=== PATIENT | female | born 1950 | race Caucasian/White ===

== ENCOUNTER 2017-03-04 05:47 | Emergency (ER) | payer OTHER ==
[~2017-03-04] VITALS: Ht 165.1 cm; Wt 108.9 kg
[~2017-03-04 05:47] MED LIST: ACET325UDC PO; ALPR.5 PO; AMLO5 PO; ASPI325 PO; ATOR40TA PO; CETI5 PO; CITA20 PO; CLOP75 PO; DOC250 PO; GABA100 PO; HYDR1TAB94 PO; LEVSOD100 PO; LISI20 PO; METO25 PO; OXYB5 PO; Omeprazole20 M1 PO; PANT40 PO; PROBIOTIC1 EAC1 PO; TRIM100 PO; ZOLP10 PO
[2017-03-04 06:11] LABS: BASOPHILS ABSOLUTE AUTO 0.02 K/mm3 (0.00-0.23); BASOPHILS PERCENT AUTO 0 % (0-2); EOSINOPHILS ABSOLUTE AUTO 0.25 K/mm3 (0.00-0.68); EOSINOPHILS PERCENT AUTO 4 % (0-6); Hemoglobin 14.8 g/dL (11.5-16.0); IMMATURE GRAN ABSOLUTE AUTO 0.01 K/mm3 (0.00-0.10); IMMATURE GRAN PERCENT AUTO 0 % (0-1); LYMPHOCYTES PERCENT AUTO 35 % (21-46); MONOCYTES ABSOLUTE AUTO 0.35 K/mm3 (0.16-1.47); MONOCYTES PERCENT AUTO 5 % (4-13); Mean Corpuscular HGB 30.6 pg (26.0-34.0); Mean Corpuscular HGB Conc 33.6 g/dL (31.5-36.5); Mean Corpuscular Volume 91 fL (80-100); Mean Platelet Volume 11.6 fL (9.1-12.4); NEUTROPHILS ABSOLUTE AUTO 3.63 K/mm3 (1.96-9.15); NEUTROPHILS PERCENT AUTO 55 % (41-73); Platelet Count 215 K/mm3 (150-400); RDW Coefficient Variation 12.5 % (11.7-14.2); RDW Standard Deviation 41.6 fL (35.1-46.3); Red Blood Cell Count 4.84 M/mm3 (3.80-5.20); White Blood Cell Count 6.56 K/mm3 (4.00-11.30)
[2017-03-04] MEDS ORDERED: HYDR1TAB94 PO (06:16)
[2017-03-04] MEDS ORDERED: TRAM50 PO (06:16)
[2017-03-04] MEDS ORDERED: NITR100 PO (06:17)
[2017-03-04] MEDS ORDERED: OLAN2.5 PO (06:17)
[2017-03-04 06:30] LABS: Alanine Aminotransfer (ALT/SGP 30 U/L (12-78); Albumin, Blood 3.3 g/dL (3.4-5.0); Albumin/Globulin Ratio 0.9 (0.8-1.8); Alk Phos 141 U/L (50-136); Anion Gap 9 mmol/L (6-16); Aspartate Aminotrans (AST/SGOT 18 U/L (12-37); Bilirubin, Total 0.8 mg/dL (0.1-1.0); Blood Urea Nitrogen 18 mg/dL (8-24); Bun/Creatinine Ratio 31.4 (12.0-20.0); CO2, Blood 24 mmol/L (21-32); Calcium, Blood 8.5 mg/dL (8.5-10.1); Chloride, Blood 109 mmol/L (98-108); Creatinine, Blood 0.57 mg/dL (0.40-1.00); Globulin, Blood 3.7 g/dL (2.2-4.0); Glomerular Filtration Rate >60 (60-); Glucose, Blood 116 mg/dL (70-99); Potassium, Blood 3.7 mmol/L (3.5-5.5); Sodium, Blood 142 mmol/L (136-145); Troponin I <0.015 ng/mL (0.000-0.040)
== END 2017-03-04 07:50 | disposition home or self-care (01) ==
LOC: ER 05:47
PROVIDERS: Emergency Medicine
DX: R41.82 Altered mental status, unspecified (principal); T43.595A Adverse effect of other antipsychotics and neuroleptics, initial encounter; I10 Essential (primary) hypertension; E78.00 Pure hypercholesterolemia, unspecified; Z88.1 Allergy status to other antibiotic agents; Z88.5 Allergy status to narcotic agent; Z88.2 Allergy status to sulfonamides; Z88.8 Allergy status to other drugs, medicaments and biological substances; Z79.899 Other long term (current) drug therapy; Z79.82 Long term (current) use of aspirin; Z86.73 Personal history of transient ischemic attack (TIA), and cerebral infarction without residual deficits
CPT/HCPCS: 70450; 80053; 82947; 84484; 85025; 93005; 93010; 96360; 99284; J7030; P9612

== ENCOUNTER 2017-05-18 00:28 | Emergency (ER) | payer OTHER ==
[~2017-05-18] VITALS: Ht 165.1 cm; Wt 104.3 kg
[~2017-05-18 00:28] MED LIST changes: +NITR100 PO; +OLAN2.5 PO; +TRAM50 PO
[2017-05-18 01:25] LABS: BASOPHILS ABSOLUTE AUTO 0.03 K/mm3 (0.00-0.23); BASOPHILS PERCENT AUTO 0 % (0-2); EOSINOPHILS ABSOLUTE AUTO 0.11 K/mm3 (0.00-0.68); EOSINOPHILS PERCENT AUTO 1 % (0-6); Hematocrit 44.3 % (33.0-51.0); Hemoglobin 15.2 g/dL (11.5-16.0); IMMATURE GRAN ABSOLUTE AUTO 0.06 K/mm3 (0.00-0.10); IMMATURE GRAN PERCENT AUTO 0 % (0-1); LYMPHOCYTES ABSOLUTE AUTO 0.83 K/mm3 (0.84-5.20); LYMPHOCYTES PERCENT AUTO 5 % (21-46); MONOCYTES ABSOLUTE AUTO 0.54 K/mm3 (0.16-1.47); MONOCYTES PERCENT AUTO 3 % (4-13); Mean Corpuscular HGB 30.8 pg (26.0-34.0); Mean Corpuscular HGB Conc 34.3 g/dL (31.5-36.5); Mean Corpuscular Volume 90 fL (80-100); Mean Platelet Volume 12.5 fL (9.1-12.4); NEUTROPHILS ABSOLUTE AUTO 15.75 K/mm3 (1.96-9.15); NEUTROPHILS PERCENT AUTO 91 % (41-73); Platelet Count 220 K/mm3 (150-400); RDW Coefficient Variation 12.1 % (11.7-14.2); RDW Standard Deviation 39.8 fL (35.1-46.3); Red Blood Cell Count 4.93 M/mm3 (3.80-5.20); White Blood Cell Count 17.32 K/mm3 (4.00-11.30)
[2017-05-18 01:38] LABS: Alanine Aminotransfer (ALT/SGP 99 U/L (12-78); Albumin, Blood 3.4 g/dL (3.4-5.0); Albumin/Globulin Ratio 0.8 (0.8-1.8); Alk Phos 205 U/L (50-136); Anion Gap 12 mmol/L (6-16); Aspartate Aminotrans (AST/SGOT 32 U/L (12-37); Bilirubin, Total 0.7 mg/dL (0.1-1.0); Blood Urea Nitrogen 19 mg/dL (8-24); CO2, Blood 23 mmol/L (21-32); Calcium, Blood 8.4 mg/dL (8.5-10.1); Chloride, Blood 105 mmol/L (98-108); Creatinine, Blood 0.68 mg/dL (0.40-1.00); Globulin, Blood 4.3 g/dL (2.2-4.0); Glomerular Filtration Rate >60 (60-); Glucose, Blood 225 mg/dL (70-99); Potassium, Blood 4.2 mmol/L (3.5-5.5); Sodium, Blood 140 mmol/L (136-145); Total Protein, Blood 7.7 g/dL (6.4-8.2)
== END 2017-05-18 02:56 | disposition home or self-care (01) ==
LOC: ER 00:28
PROVIDERS: Emergency Medicine
DX: R11.2 Nausea with vomiting, unspecified (principal); I10 Essential (primary) hypertension; E78.00 Pure hypercholesterolemia, unspecified; Z88.1 Allergy status to other antibiotic agents; Z88.5 Allergy status to narcotic agent; Z88.2 Allergy status to sulfonamides; Z79.899 Other long term (current) drug therapy; Z79.82 Long term (current) use of aspirin; Z86.73 Personal history of transient ischemic attack (TIA), and cerebral infarction without residual deficits
CPT/HCPCS: 36415; 80053; 83690; 85025; 96361; 96374; 99283; J2405; J7030

== ENCOUNTER 2017-08-24 20:00 | Inpatient (IN) | payer OTHER ==
[~2017-08-24] VITALS: Ht 167.6 cm; Wt 96.0 kg
[2017-08-24 20:32] LABS: BASOPHILS ABSOLUTE AUTO 0.02 K/mm3 (0.00-0.23); BASOPHILS PERCENT AUTO 0 % (0-2); EOSINOPHILS ABSOLUTE AUTO 0.22 K/mm3 (0.00-0.68); EOSINOPHILS PERCENT AUTO 3 % (0-6); Hematocrit 40.8 % (33.0-51.0); Hemoglobin 13.8 g/dL (11.5-16.0); IMMATURE GRAN ABSOLUTE AUTO 0.02 K/mm3 (0.00-0.10); IMMATURE GRAN PERCENT AUTO 0 % (0-1); LYMPHOCYTES ABSOLUTE AUTO 1.19 K/mm3 (0.84-5.20); LYMPHOCYTES PERCENT AUTO 17 % (21-46); MONOCYTES ABSOLUTE AUTO 0.48 K/mm3 (0.16-1.47); MONOCYTES PERCENT AUTO 7 % (4-13); Mean Corpuscular HGB 31.2 pg (26.0-34.0); Mean Corpuscular HGB Conc 33.8 g/dL (31.5-36.5); Mean Corpuscular Volume 92 fL (80-100); Mean Platelet Volume 12.1 fL (9.1-12.4); NEUTROPHILS ABSOLUTE AUTO 5.28 K/mm3 (1.96-9.15); NEUTROPHILS PERCENT AUTO 73 % (41-73); Platelet Count 262 K/mm3 (150-400); RDW Coefficient Variation 12.3 % (11.7-14.2); RDW Standard Deviation 41.5 fL (35.1-46.3); Red Blood Cell Count 4.43 M/mm3 (3.80-5.20); White Blood Cell Count 7.21 K/mm3 (4.00-11.30)
[2017-08-24 20:50] LABS: Alanine Aminotransfer (ALT/SGP 406 U/L (12-78); Albumin, Blood 3.2 g/dL (3.4-5.0); Albumin/Globulin Ratio 0.7 (0.8-1.8); Alk Phos 426 U/L (50-136); Anion Gap 10 mmol/L (6-16); Aspartate Aminotrans (AST/SGOT 394 U/L (12-37); Bilirubin, Total 2.9 mg/dL (0.1-1.0); Blood Urea Nitrogen 22 mg/dL (8-24); CO2, Blood 23 mmol/L (21-32); Chloride, Blood 104 mmol/L (98-108); Creatinine, Blood 0.71 mg/dL (0.40-1.00); Globulin, Blood 4.6 g/dL (2.2-4.0); Glomerular Filtration Rate >60 (60-); Glucose, Blood 167 mg/dL (70-99); Potassium, Blood 3.9 mmol/L (3.5-5.5); Sodium, Blood 137 mmol/L (136-145); Total Protein, Blood 7.8 g/dL (6.4-8.2)
[2017-08-24 22:23] LABS: Source, Urine Clean Catch
[2017-08-24 22:28] LABS: Blood, Urine 1+ (Neg); Glucose Qualitative, Urine Neg (Neg); Ketones, Urine 1+ (Neg); Leukocyte Esterase, Urine 2+ (Neg); Nitrite, Urine Pos (Neg); Protein, Urine 2+ (Neg); Urobilinogen, Urine 4+ (Normal)
[2017-08-24 22:29] LABS: Appearance, Urine Hazy (Clear); Bilirubin, Urine 3+ (Neg); Color, Urine Amber (P-Yellow)
[2017-08-24 22:33] LABS: Red Blood Cells, Urine Rare /hpf (0-2)
[2017-08-24 22:34] LABS: Bacteria Many /hpf; Squamous Epithelial Cells Not Seen /hpf (Few)
[2017-08-25] MEDS ORDERED: AMLO5 PO (02:01)
[2017-08-25 03:57] LABS: Thyroid Stimulating Hormone 0.705 uIU/mL (0.360-4.800)
[2017-08-25] MEDS ORDERED: PREMARIN VAG CREAM (05:23)
[2017-08-25] MEDS ORDERED: FLONASE SENSIM5.9 ML ×2 (05:23→10:52)
[2017-08-25] MEDS ORDERED: ALLERGY EYE DRO10 ML BOTHEYES (10:52)
[2017-08-26 04:42] LABS: Hematocrit 32.8 % (33.0-51.0); Hemoglobin 10.9 g/dL (11.5-16.0); Mean Corpuscular HGB 31.2 pg (26.0-34.0); Mean Corpuscular HGB Conc 33.2 g/dL (31.5-36.5); Mean Corpuscular Volume 94 fL (80-100); Mean Platelet Volume 11.8 fL (9.1-12.4); Platelet Count 188 K/mm3 (150-400); RDW Coefficient Variation 12.3 % (11.7-14.2); RDW Standard Deviation 42.9 fL (35.1-46.3); Red Blood Cell Count 3.49 M/mm3 (3.80-5.20); White Blood Cell Count 8.32 K/mm3 (4.00-11.30)
[2017-08-26 05:02] LABS: Alanine Aminotransfer (ALT/SGP 229 U/L (12-78); Albumin, Blood 2.4 g/dL (3.4-5.0); Albumin/Globulin Ratio 0.6 (0.8-1.8); Alk Phos 316 U/L (50-136); Anion Gap 10 mmol/L (6-16); Aspartate Aminotrans (AST/SGOT 150 U/L (12-37); BAND PERCENT MAN 9 % (0-8); BASOPHILS PERCENT MAN 0 % (0-2); Bilirubin, Total 1.7 mg/dL (0.1-1.0); Blood Urea Nitrogen 9 mg/dL (8-24); Bun/Creatinine Ratio 16.2 (12.0-20.0); CO2, Blood 21 mmol/L (21-32); Calcium, Blood 7.9 mg/dL (8.5-10.1); Chloride, Blood 108 mmol/L (98-108); Creatinine, Blood 0.55 mg/dL (0.40-1.00); EOSINOPHILS PERCENT MAN 0 % (0-6); Globulin, Blood 3.7 g/dL (2.2-4.0); Glomerular Filtration Rate >60 (60-); Glucose, Blood 280 mg/dL (70-99); LYMPHOCYTES ABSOLUTE MAN 0.41 K/mm3 (0.84-5.20); LYMPHOCYTES PERCENT MAN 5 % (21-46); MONOCYTES ABSOLUTE MAN 0.49 K/mm3 (0.16-1.47); MONOCYTES PERCENT MAN 6 % (4-13); Potassium, Blood 4.4 mmol/L (3.5-5.5); SEG NEUTROPHILS PERCENT MAN 80 % (41-73); Sodium, Blood 139 mmol/L (136-145); TOTAL CELLS COUNTED 100; Total Protein, Blood 6.1 g/dL (6.4-8.2)
[2017-08-27 04:28] LABS: BASOPHILS ABSOLUTE AUTO 0.02 K/mm3 (0.00-0.23); BASOPHILS PERCENT AUTO 0 % (0-2); EOSINOPHILS ABSOLUTE AUTO 0.43 K/mm3 (0.00-0.68); EOSINOPHILS PERCENT AUTO 7 % (0-6); Hemoglobin 10.8 g/dL (11.5-16.0); IMMATURE GRAN ABSOLUTE AUTO 0.03 K/mm3 (0.00-0.10); IMMATURE GRAN PERCENT AUTO 1 % (0-1); LYMPHOCYTES ABSOLUTE AUTO 1.11 K/mm3 (0.84-5.20); LYMPHOCYTES PERCENT AUTO 18 % (21-46); MONOCYTES ABSOLUTE AUTO 0.42 K/mm3 (0.16-1.47); MONOCYTES PERCENT AUTO 7 % (4-13); Mean Corpuscular HGB 30.9 pg (26.0-34.0); Mean Corpuscular HGB Conc 32.7 g/dL (31.5-36.5); Mean Corpuscular Volume 94 fL (80-100); Mean Platelet Volume 12.2 fL (9.1-12.4); NEUTROPHILS ABSOLUTE AUTO 4.13 K/mm3 (1.96-9.15); NEUTROPHILS PERCENT AUTO 67 % (41-73); Platelet Count 176 K/mm3 (150-400); RDW Coefficient Variation 12.7 % (11.7-14.2); RDW Standard Deviation 43.7 fL (35.1-46.3); White Blood Cell Count 6.14 K/mm3 (4.00-11.30)
[2017-08-27 04:52] LABS: Alanine Aminotransfer (ALT/SGP 176 U/L (12-78); Albumin, Blood 2.4 g/dL (3.4-5.0); Albumin/Globulin Ratio 0.7 (0.8-1.8); Alk Phos 292 U/L (50-136); Anion Gap 7 mmol/L (6-16); Aspartate Aminotrans (AST/SGOT 94 U/L (12-37); Blood Urea Nitrogen 6 mg/dL (8-24); CO2, Blood 26 mmol/L (21-32); Calcium, Blood 7.8 mg/dL (8.5-10.1); Chloride, Blood 111 mmol/L (98-108); Globulin, Blood 3.4 g/dL (2.2-4.0); Glomerular Filtration Rate >60 (60-); Glucose, Blood 166 mg/dL (70-99); Magnesium, Blood 1.9 mg/dL (1.6-2.4); Phosphorus, Blood 2.1 mg/dL (2.5-4.9); Potassium, Blood 4.1 mmol/L (3.5-5.5); Sodium, Blood 144 mmol/L (136-145); Total Protein, Blood 5.8 g/dL (6.4-8.2)
[2017-08-28 04:15] LABS: Albumin, Blood 2.8 g/dL (3.4-5.0); Albumin/Globulin Ratio 0.7 (0.8-1.8); Bilirubin, Direct 0.4 mg/dL (0.0-0.3); Bilirubin, Indirect 0.8 mg/dL (0.1-0.7); Bilirubin, Total 1.2 mg/dL (0.1-1.0); Globulin, Blood 4.2 g/dL (2.2-4.0)
[2017-08-29] MEDS ORDERED: CIPR500 PO (10:01)
[2017-08-29] MEDS ORDERED: METR500 PO (10:02)
[2017-08-29] MEDS ORDERED: ONDA4ODT MM (10:04)
== END 2017-08-29 13:40 | disposition home health service (06) | DRG 418 ==
LOC: ER 20:00 → PCU 08-25 02:59
PROVIDERS: Emergency Medicine; Hospitalist; Surgery
PROC: BF13YZZ Fluoroscopy of Gallbladder and Bile Ducts using Other Contrast (ICD-10-PCS; 2017-08-25)
PROC: 0FT44ZZ Resection of Gallbladder, Percutaneous Endoscopic Approach (ICD-10-PCS; principal; 2017-08-25 11:30)
DX: K80.00 Calculus of gallbladder with acute cholecystitis without obstruction (principal); I69.951 Hemiplegia and hemiparesis following unspecified cerebrovascular disease affecting right dominant side; N39.0 Urinary tract infection, site not specified; E03.9 Hypothyroidism, unspecified; E78.5 Hyperlipidemia, unspecified; K21.9 Gastro-esophageal reflux disease without esophagitis
CPT/HCPCS: 36415; 51702; 70450; 71046; 74181; 74300; 76705; 80053; 80076; 81001; 83605; 83690; 83735; 84100; 84443; 85025; 87086; 88304; 96365; 97110; 97161; 97166; 97530; 99285; C1729; C9113; G8978; G8979; G8980; G8987; G8988; G8989; J0696; J0744; J1100; J2001; J2060; J2250; J2370; J2405; J2710; J3010; J7030; P9612

== ENCOUNTER → 2017-09-17 | Outpatient (CLI) | payer OTHER ==
[~2017-09-17] MED LIST changes: +ALLERGY EYE DRO10 ML BOTHEYES; +CIPR500 PO; +FLONASE SENSIM5.9 ML; +METR500 PO; +ONDA4ODT MM; +PREMARIN VAG CREAM
[2017-09-17 15:03] LABS: Bilirubin, Urine Neg (Neg); Blood, Urine Neg (Neg); Glucose Qualitative, Urine Neg (Neg); Ketones, Urine Neg (Neg); Leukocyte Esterase, Urine 2+ (Neg); Nitrite, Urine Neg (Neg); Protein, Urine 1+ (Neg); Urobilinogen, Urine NORM (Normal)
[2017-09-17 15:18] LABS: Appearance, Urine Clear (Clear); Color, Urine Yellow (P-Yellow)
[2017-09-17 15:19] LABS: Bacteria Few /hpf; Red Blood Cells, Urine 0-2 /hpf (0-2); Squamous Epithelial Cells Few /hpf (Few); White Blood Cells, Urine 25-50 /hpf (0-5); Yeast/Fungi Urine Few /hpf
== END | disposition home or self-care (01) ==
LOC: LAB EV 12:05
PROVIDERS: Nurse Practitioner
DX: R35.0 Frequency of micturition (principal)
CPT/HCPCS: 81001

== ENCOUNTER 2017-11-25 19:21 | Inpatient (IN) | payer OTHER ==
[~2017-11-25] VITALS: Ht 165.1 cm; Wt 94.2 kg
[2017-11-25 19:57] LABS: BASOPHILS ABSOLUTE AUTO 0.03 K/mm3 (0.00-0.23); BASOPHILS PERCENT AUTO 0 % (0-2); EOSINOPHILS ABSOLUTE AUTO 0.13 K/mm3 (0.00-0.68); EOSINOPHILS PERCENT AUTO 1 % (0-6); Hematocrit 44.8 % (33.0-51.0); Hemoglobin 15.1 g/dL (11.5-16.0); IMMATURE GRAN ABSOLUTE AUTO 0.04 K/mm3 (0.00-0.10); IMMATURE GRAN PERCENT AUTO 0 % (0-1); LYMPHOCYTES PERCENT AUTO 12 % (21-46); MONOCYTES ABSOLUTE AUTO 0.54 K/mm3 (0.16-1.47); MONOCYTES PERCENT AUTO 4 % (4-13); Mean Corpuscular HGB 30.8 pg (26.0-34.0); Mean Corpuscular HGB Conc 33.7 g/dL (31.5-36.5); Mean Corpuscular Volume 91 fL (80-100); Mean Platelet Volume 12.3 fL (9.1-12.4); NEUTROPHILS ABSOLUTE AUTO 10.77 K/mm3 (1.96-9.15); NEUTROPHILS PERCENT AUTO 83 % (41-73); Platelet Count 213 K/mm3 (150-400); RDW Coefficient Variation 12.4 % (11.7-14.2); RDW Standard Deviation 41.7 fL (35.1-46.3); White Blood Cell Count 13.01 K/mm3 (4.00-11.30)
[2017-11-25 20:06] LABS: Alanine Aminotransfer (ALT/SGP 37 U/L (12-78); Albumin, Blood 3.5 g/dL (3.4-5.0); Albumin/Globulin Ratio 0.8 (0.8-1.8); Alk Phos 165 U/L (50-136); Anion Gap 11 mmol/L (6-16); Aspartate Aminotrans (AST/SGOT 27 U/L (12-37); Bilirubin, Total 0.7 mg/dL (0.1-1.0); Blood Urea Nitrogen 15 mg/dL (8-24); Bun/Creatinine Ratio 24.8 (12.0-20.0); CO2, Blood 22 mmol/L (21-32); Calcium, Blood 9.1 mg/dL (8.5-10.1); Chloride, Blood 105 mmol/L (98-108); Creatinine, Blood 0.61 mg/dL (0.40-1.00); Globulin, Blood 4.4 g/dL (2.2-4.0); Glomerular Filtration Rate >60 (60-); Glucose, Blood 162 mg/dL (70-99); Potassium, Blood 3.9 mmol/L (3.5-5.5); Sodium, Blood 138 mmol/L (136-145); Total Protein, Blood 7.9 g/dL (6.4-8.2)
[2017-11-25] MEDS ORDERED: Nitrofurantoin50 MG PO (20:11)
[2017-11-25 22:43] LABS: Source, Urine Clean Catch
[2017-11-25 22:46] LABS: Bilirubin, Urine Neg (Neg); Blood, Urine Neg (Neg); Glucose Qualitative, Urine Neg (Neg); Ketones, Urine 1+ (Neg); Leukocyte Esterase, Urine 1+ (Neg); Nitrite, Urine Neg (Neg); Protein, Urine 1+ (Neg); Specific Gravity, Urine 1.015 (1.003-1.022); Urobilinogen, Urine NORM (Normal)
[2017-11-25 22:53] LABS: Appearance, Urine Clear (Clear); Color, Urine Yellow (P-Yellow); Red Blood Cells, Urine 0-2 /hpf (0-2); Squamous Epithelial Cells Mod /hpf (Few)
[2017-11-25 22:54] LABS: Bacteria Mod /hpf; Mucus Mod (0-Heavy)
[2017-11-26 00:34] LABS: Adenovirus Not Detected (NOT DETECT); Coronavirus 229E Not Detected (NOT DETECT); Coronavirus HKU1 Not Detected (NOT DETECT); Coronavirus NL63 Not Detected (NOT DETECT); Coronavirus OC43 Not Detected (NOT DETECT); Human Metapneumovirus Not Detected (NOT DETECT); Human Rhinovirus/Enterovirus Not Detected (NOT DETECT); Influenza A/H1 Not Detected (NOT DETECT); Influenza A/H3 Not Detected (NOT DETECT)
[2017-11-26 00:35] LABS: Bordetella pertussis Not Detected (NOT DETECT); Chlamydophila pneumoniae Not Detected (NOT DETECT); Influenza A/2009-H1 Not Detected (NOT DETECT); Influenza B Not Detected (NOT DETECT); Mycoplasma pneumoniae Not Detected (NOT DETECT); Parainfluenza Virus 1 Not Detected (NOT DETECT); Parainfluenza Virus 2 Not Detected (NOT DETECT); Parainfluenza Virus 3 Not Detected (NOT DETECT); Parainfluenza Virus 4 Not Detected (NOT DETECT); Respiratory Syncytial Virus Not Detected (NOT DETECT)
[2017-11-26 02:50] LABS: Influenza A Not Detected (NOT DETECT)
[2017-11-26 04:11] LABS: BASOPHILS ABSOLUTE AUTO 0.02 K/mm3 (0.00-0.23); BASOPHILS PERCENT AUTO 0 % (0-2); EOSINOPHILS ABSOLUTE AUTO 0.17 K/mm3 (0.00-0.68); EOSINOPHILS PERCENT AUTO 2 % (0-6); Hematocrit 39.3 % (33.0-51.0); Hemoglobin 12.7 g/dL (11.5-16.0); IMMATURE GRAN ABSOLUTE AUTO 0.03 K/mm3 (0.00-0.10); IMMATURE GRAN PERCENT AUTO 0 % (0-1); LYMPHOCYTES ABSOLUTE AUTO 2.34 K/mm3 (0.84-5.20); LYMPHOCYTES PERCENT AUTO 25 % (21-46); MONOCYTES ABSOLUTE AUTO 0.68 K/mm3 (0.16-1.47); MONOCYTES PERCENT AUTO 7 % (4-13); Mean Corpuscular HGB 30.6 pg (26.0-34.0); Mean Corpuscular HGB Conc 32.3 g/dL (31.5-36.5); Mean Platelet Volume 12.1 fL (9.1-12.4); NEUTROPHILS ABSOLUTE AUTO 6.16 K/mm3 (1.96-9.15); NEUTROPHILS PERCENT AUTO 66 % (41-73); Platelet Count 176 K/mm3 (150-400); RDW Coefficient Variation 12.6 % (11.7-14.2); RDW Standard Deviation 43.5 fL (35.1-46.3); Red Blood Cell Count 4.15 M/mm3 (3.80-5.20)
[2017-11-26 04:12] LABS: Mean Corpuscular Volume 95 fL (80-100)
[2017-11-26 04:31] LABS: Anion Gap 7 mmol/L (6-16); Blood Urea Nitrogen 12 mg/dL (8-24); Bun/Creatinine Ratio 20.2 (12.0-20.0); CO2, Blood 23 mmol/L (21-32); Calcium, Blood 7.6 mg/dL (8.5-10.1); Chloride, Blood 111 mmol/L (98-108); Creatinine, Blood 0.59 mg/dL (0.40-1.00); Glomerular Filtration Rate >60 (60-); Glucose, Blood 128 mg/dL (70-99); Potassium, Blood 3.7 mmol/L (3.5-5.5); Sodium, Blood 141 mmol/L (136-145)
[2017-11-27 04:39] LABS: BASOPHILS ABSOLUTE AUTO 0.02 K/mm3 (0.00-0.23); BASOPHILS PERCENT AUTO 0 % (0-2); EOSINOPHILS ABSOLUTE AUTO 0.22 K/mm3 (0.00-0.68); EOSINOPHILS PERCENT AUTO 4 % (0-6); Hematocrit 37.2 % (33.0-51.0); Hemoglobin 12.3 g/dL (11.5-16.0); IMMATURE GRAN ABSOLUTE AUTO 0.01 K/mm3 (0.00-0.10); IMMATURE GRAN PERCENT AUTO 0 % (0-1); LYMPHOCYTES ABSOLUTE AUTO 1.96 K/mm3 (0.84-5.20); LYMPHOCYTES PERCENT AUTO 35 % (21-46); MONOCYTES PERCENT AUTO 5 % (4-13); Mean Corpuscular HGB 30.8 pg (26.0-34.0); Mean Corpuscular HGB Conc 33.1 g/dL (31.5-36.5); Mean Corpuscular Volume 93 fL (80-100); Mean Platelet Volume 12.5 fL (9.1-12.4); NEUTROPHILS ABSOLUTE AUTO 3.07 K/mm3 (1.96-9.15); NEUTROPHILS PERCENT AUTO 55 % (41-73); Platelet Count 163 K/mm3 (150-400); RDW Coefficient Variation 12.6 % (11.7-14.2); RDW Standard Deviation 43.3 fL (35.1-46.3); Red Blood Cell Count 3.99 M/mm3 (3.80-5.20); White Blood Cell Count 5.58 K/mm3 (4.00-11.30)
[2017-11-27 04:53] LABS: Anion Gap 6 mmol/L (6-16); Blood Urea Nitrogen 10 mg/dL (8-24); Bun/Creatinine Ratio 15.7 (12.0-20.0); CO2, Blood 25 mmol/L (21-32); Calcium, Blood 8.2 mg/dL (8.5-10.1); Chloride, Blood 111 mmol/L (98-108); Creatinine, Blood 0.64 mg/dL (0.40-1.00); Glomerular Filtration Rate >60 (60-); Glucose, Blood 112 mg/dL (70-99); Potassium, Blood 3.6 mmol/L (3.5-5.5); Sodium, Blood 142 mmol/L (136-145)
[2017-11-27] MEDS ORDERED: Artificial Tear15 M4 BOTHEYES (14:36)
[2017-11-27] MEDS ORDERED: ALBU2.5V5 NEB (14:50)
[2017-11-27] MEDS ORDERED: LEVO750 PO (14:51)
[2017-11-27] MEDS ORDERED: MUCINEX D ER 61 EACH PO (14:51)
[2017-11-27] MEDS ORDERED: ABAT250V (14:59)
[2017-11-27] MEDS ORDERED: MUCUS ER600 MG PO (14:59)
== END 2017-11-27 15:28 | disposition home health service (06) | DRG 871 ==
LOC: ER 19:21 → MEDS 22:28 → PCU 22:28
PROVIDERS: Emergency Medicine; Nurse Practitioner Acute Care; Student in an Organized Health Care Education/Training Program
DX: A41.9 Sepsis, unspecified organism (principal); J96.01 Acute respiratory failure with hypoxia; J69.0 Pneumonitis due to inhalation of food and vomit; I69.351 Hemiplegia and hemiparesis following cerebral infarction affecting right dominant side; E87.2 Acidosis; I69.391 Dysphagia following cerebral infarction; I69.320 Aphasia following cerebral infarction; I10 Essential (primary) hypertension; E78.00 Pure hypercholesterolemia, unspecified; E03.9 Hypothyroidism, unspecified; N95.1 Menopausal and female climacteric states; K21.9 Gastro-esophageal reflux disease without esophagitis; R21 Rash and other nonspecific skin eruption; F32.9 Major depressive disorder, single episode, unspecified; Z98.1 Arthrodesis status; Z90.710 Acquired absence of both cervix and uterus; Z87.440 Personal history of urinary (tract) infections; Z79.890 Hormone replacement therapy; Z79.01 Long term (current) use of anticoagulants; Z79.82 Long term (current) use of aspirin; Z79.899 Other long term (current) drug therapy; Z88.1 Allergy status to other antibiotic agents; Z88.2 Allergy status to sulfonamides
CPT/HCPCS: 36415; 51701; 71046; 80048; 80053; 81001; 83605; 85025; 87086; 87449; 87486; 87581; 87633; 87798; 90686; 92610; 93005; 93010; 94640; 94760; 96365; 97165; 97535; 99285-25; G8987; G8988; G8989; G8996; G8997; G8998; J1650; J1956; J7030

== ENCOUNTER → 2018-04-09 | Outpatient (CLI) | payer OTHER ==
[~2018-04-09] MED LIST changes: +ABAT250V; +ALBU2.5V5 NEB; +Artificial Tear15 M4 BOTHEYES; +LEVO750 PO; +MUCINEX D ER 61 EACH PO; +MUCUS ER600 MG PO; +Nitrofurantoin50 MG PO
[2018-04-09 09:52] LABS: Source, Urine Clean Catch
[2018-04-09 10:26] LABS: Appearance, Urine Hazy (Clear); Bilirubin, Urine Neg (Neg); Blood, Urine Neg (Neg); Color, Urine Yellow (P-Yellow); Glucose Qualitative, Urine Neg (Normal); Ketones, Urine Neg (Neg); Leukocyte Esterase, Urine 1+ (Neg); Nitrite, Urine Neg (Neg); Protein, Urine Neg (Neg); Specific Gravity, Urine 1.005 (1.003-1.022); Urobilinogen, Urine NORM (Normal)
[2018-04-09 10:33] LABS: Bacteria Rare /hpf; Red Blood Cells, Urine Not Seen /hpf (0-2); Squamous Epithelial Cells Few /hpf (Few)
== END | disposition home or self-care (01) ==
LOC: LAB EV 08:00
PROVIDERS: Nurse Practitioner
DX: R35.0 Frequency of micturition (principal)
CPT/HCPCS: 81001; 87086

== ENCOUNTER → 2018-10-02 | Outpatient (CLI) | payer OTHER | END | disposition home or self-care (01) | LOC: LAB EV 10:36 → LAB SHORT 10:36 | DX: R39.9 Unspecified symptoms and signs involving the genitourinary system (principal) | CPT/HCPCS: 87077; 87086; 87186 ==

== ENCOUNTER → 2019-05-29 | Outpatient (CLI) | payer OTHER | END | disposition home or self-care (01) | LOC: LAB EV 18:19 → LAB SHORT 18:19 | DX: R35.0 Frequency of micturition (principal) | CPT/HCPCS: 87086 ==

== ENCOUNTER → 2019-12-01 | Outpatient (CLI) | payer OTHER ==
[2019-12-01 11:39] LABS: Appearance, Urine Hazy (Clear); Bilirubin, Urine Neg (Neg); Blood, Urine 1+ (Neg); Color, Urine Yellow (P-Yellow); Glucose Qualitative, Urine Neg (Normal); Ketones, Urine Neg (Neg); Leukocyte Esterase, Urine 2+ (Neg); Nitrite, Urine Neg (Neg); Protein, Urine Neg (Neg); Source, Urine Catheter; Urobilinogen, Urine NORM (Normal); White Blood Cells, Urine 50-100 /hpf (0-5)
[2019-12-01 11:40] LABS: Bacteria Mod /hpf; Squamous Epithelial Cells Few /hpf (Few); Transitional Epithelial Cells Rare /hpf (0-Rare)
== END | disposition home or self-care (01) ==
LOC: LAB EV 09:59 → LAB SHORT 09:59
PROVIDERS: Nurse Practitioner
DX: N39.0 Urinary tract infection, site not specified (principal)
CPT/HCPCS: 81001; 87077; 87086; 87186

== ENCOUNTER → 2020-01-14 | Outpatient (CLI) | payer OTHER ==
[2020-01-14 09:35] LABS: Source, Urine Catheter
[2020-01-14 09:39] LABS: Appearance, Urine Hazy (Clear); Bilirubin, Urine Neg (Neg); Blood, Urine Neg (Neg); Color, Urine Yellow (P-Yellow); Glucose Qualitative, Urine Neg (Normal); Ketones, Urine Neg (Neg); Leukocyte Esterase, Urine 2+ (Neg); Nitrite, Urine Neg (Neg); Protein, Urine Neg (Neg); Urobilinogen, Urine NORM (Normal)
[2020-01-14 09:55] LABS: Bacteria Not Seen /hpf; Red Blood Cells, Urine Not Seen /hpf (0-2); Squamous Epithelial Cells Mod /hpf (Few)
== END ==
LOC: LAB SHORT 09:21 → LAB EV 09:21
PROVIDERS: Nurse Practitioner
DX: N39.0 Urinary tract infection, site not specified (principal)
CPT/HCPCS: 81001; 87077; 87086; 87186

== ENCOUNTER 2021-01-23 15:01 | Emergency (ER) | payer OTHER ==
[~2021-01-23] VITALS: Ht 165.1 cm; Wt 95.2 kg
[2021-01-23] MEDS ORDERED: CYMBALTA30 M2 PO (15:15)
[2021-01-23] MEDS ORDERED: NEURONTIN300 MG PO (15:16)
[2021-01-23 15:54] LABS: BASOPHILS ABSOLUTE AUTO 0.01 K/mm3 (0.00-0.23); BASOPHILS PERCENT AUTO 0 % (0-2); EOSINOPHILS PERCENT AUTO 0 % (0-6); Hematocrit 41.1 % (33.0-51.0); Hemoglobin 13.7 g/dL (11.5-16.0); IMMATURE GRAN ABSOLUTE AUTO 0.03 K/mm3 (0.00-0.10); IMMATURE GRAN PERCENT AUTO 0 % (0-1); LYMPHOCYTES ABSOLUTE AUTO 0.77 K/mm3 (0.84-5.20); LYMPHOCYTES PERCENT AUTO 11 % (21-46); MONOCYTES ABSOLUTE AUTO 0.25 K/mm3 (0.16-1.47); MONOCYTES PERCENT AUTO 4 % (4-13); Mean Corpuscular HGB 30.4 pg (26.0-34.0); Mean Corpuscular HGB Conc 33.3 g/dL (31.5-36.5); Mean Corpuscular Volume 91 fL (80-100); Mean Platelet Volume 12.5 fL (9.1-12.4); NEUTROPHILS ABSOLUTE AUTO 6.16 K/mm3 (1.96-9.15); NEUTROPHILS PERCENT AUTO 85 % (41-73); Platelet Count 202 K/mm3 (150-400); RDW Coefficient Variation 12.3 % (11.7-14.2); RDW Standard Deviation 40.8 fL (35.1-46.3); Red Blood Cell Count 4.51 M/mm3 (3.80-5.20); White Blood Cell Count 7.22 K/mm3 (4.00-11.30)
[2021-01-23 16:23] LABS: Alanine Aminotransfer (ALT/SGP 25 U/L (12-78); Albumin, Blood 3.2 g/dL (3.4-5.0); Albumin/Globulin Ratio 0.7 (0.8-1.8); Alk Phos 146 U/L (50-136); Anion Gap 4 mmol/L (6-16); Aspartate Aminotrans (AST/SGOT 18 U/L (12-37); Blood Urea Nitrogen 8 mg/dL (8-24); Bun/Creatinine Ratio 11.4 (12.0-20.0); CO2, Blood 28 mmol/L (21-32); Calcium, Blood 8.8 mg/dL (8.5-10.1); Chloride, Blood 106 mmol/L (98-108); Globulin, Blood 4.4 g/dL (2.2-4.0); Glomerular Filtration Rate >60 (60-); Glucose, Blood 175 mg/dL (70-99); Sodium, Blood 138 mmol/L (136-145); Total Protein, Blood 7.6 g/dL (6.4-8.2)
[2021-01-23 16:44] LABS: Source, Urine Clean Catch
[2021-01-23 16:59] LABS: Appearance, Urine Clear (Clear); Bilirubin, Urine Neg (Neg); Blood, Urine Neg (Neg); Color, Urine Yellow (P-Yellow); Glucose Qualitative, Urine Neg (Neg); Ketones, Urine 3+ (Neg); Leukocyte Esterase, Urine Neg (Neg); Nitrite, Urine Neg (Neg); Protein, Urine Neg (Neg); Specific Gravity, Urine 1.015 (1.003-1.022); Urobilinogen, Urine NORM (Normal)
[2021-01-23] MEDS ORDERED: ONDA4ODT MM (17:56)
[2021-01-23] MEDS ORDERED: MAGCIT300 PO (17:56)
== END 2021-01-23 18:30 | disposition home or self-care (01) ==
LOC: ER 15:01
PROVIDERS: Physician Assistant
DX: R11.2 Nausea with vomiting, unspecified (principal); I10 Essential (primary) hypertension; Z86.73 Personal history of transient ischemic attack (TIA), and cerebral infarction without residual deficits
CPT/HCPCS: 36415; 71045; 74177; 80053; 81003; 83690; 85025; 99284-25; J7030; P9612; Q9967

== ENCOUNTER → 2021-06-16 | Outpatient (CLI) | payer OTHER ==
[~2021-06-16] MED LIST changes: +CYMBALTA30 M2 PO; +MAGCIT300 PO; +NEURONTIN300 MG PO
== END ==
LOC: LAB SHORT 09:18
DX: N39.0 Urinary tract infection, site not specified (principal)
CPT/HCPCS: 87077; 87086; 87186

== ENCOUNTER → 2021-10-12 | Outpatient (CLI) | payer OTHER ==
[2021-10-12 12:32] LABS: Microalb/Creat Ratio UR, Rand 8.079 mg/g (0.000-30.000); Microalbumin, Random Urine 12.2 mg/L (0.000-20.000)
== END | disposition home or self-care (01) ==
LOC: LAB SHORT 08:15 → EDSTATUS 10:13
PROVIDERS: Family Medicine
DX: R73.03 Prediabetes (principal)
CPT/HCPCS: 82043; 82570

== ENCOUNTER → 2022-01-04 | Outpatient (CLI) | payer OTHER | END | disposition home or self-care (01) | LOC: LAB 11:57 → LAB SHORT 11:57 | DX: N39.0 Urinary tract infection, site not specified (principal) | CPT/HCPCS: 87077; 87086; 87186 ==

== ENCOUNTER 2022-02-01 19:12 | Inpatient (IN) | payer OTHER ==
[~2022-02-01] VITALS: Ht 165.1 cm; Wt 97.5 kg
[~2022-02-01 19:12] MED LIST changes: -ALLERGY EYE DRO10 ML BOTHEYES; +ARTIFICIAL TEAR15 M2 BOTHEYES; -Artificial Tear15 M4 BOTHEYES; -CYMBALTA30 M2 PO; +DULO60 PO; +FLONASE SENSIM5.9 M1; -LEVSOD100 PO; +LEVSOD112 PO; +OMEP20ER PO; -Omeprazole20 M1 PO; +ZADITOR5 M1 BOTHEYES
[2022-02-01 20:11] LABS: BASOPHILS ABSOLUTE AUTO 0.04 K/mm3 (0.00-0.23); BASOPHILS PERCENT AUTO 0 % (0-2); EOSINOPHILS PERCENT AUTO 0 % (0-6); Hematocrit 46.2 % (33.0-51.0); Hemoglobin 15.2 g/dL (11.5-16.0); IMMATURE GRAN ABSOLUTE AUTO 0.13 K/mm3 (0.00-0.10); IMMATURE GRAN PERCENT AUTO 1 % (0-1); LYMPHOCYTES ABSOLUTE AUTO 0.95 K/mm3 (0.84-5.20); LYMPHOCYTES PERCENT AUTO 5 % (21-46); MONOCYTES ABSOLUTE AUTO 0.61 K/mm3 (0.16-1.47); MONOCYTES PERCENT AUTO 3 % (4-13); Mean Corpuscular HGB 30.3 pg (26.0-34.0); Mean Corpuscular HGB Conc 32.9 g/dL (31.5-36.5); Mean Corpuscular Volume 92 fL (80-100); Mean Platelet Volume 12.5 fL (9.1-12.4); NEUTROPHILS ABSOLUTE AUTO 17.15 K/mm3 (1.96-9.15); NEUTROPHILS PERCENT AUTO 91 % (41-73); Platelet Count 231 K/mm3 (150-400); RDW Coefficient Variation 12.8 % (11.7-14.2); RDW Standard Deviation 43.4 fL (35.1-46.3); Red Blood Cell Count 5.02 M/mm3 (3.80-5.20); White Blood Cell Count 18.88 K/mm3 (4.00-11.30)
[2022-02-01 20:41] LABS: Albumin, Blood 3.1 g/dL (3.4-5.0); Albumin/Globulin Ratio 0.7 (0.8-1.8); Bilirubin, Total 1.7 mg/dL (0.1-1.0); Bun/Creatinine Ratio 22.1 (12.0-20.0); Calcium, Blood 9.1 mg/dL (8.5-10.1); Creatinine, Blood 0.81 mg/dL (0.40-1.00); Globulin, Blood 4.7 g/dL (2.2-4.0); Potassium, Blood 3.9 mmol/L (3.5-5.5); Total Protein, Blood 7.8 g/dL (6.4-8.2)
[2022-02-01 21:10] LABS: Influenza A, PCR NEGATIVE (NEGATIVE); Influenza B, PCR NEGATIVE (NEGATIVE); Resp Syncytial Virus, PCR NEGATIVE (NEGATIVE); SARS-Cov-2 (COVID-19) PCR, MMC NEGATIVE (NEGATIVE)
[2022-02-01] MEDS ORDERED: IPRAT-ALBUT 0.5-3 ML INH (23:42)
[2022-02-01] MEDS ORDERED: Ventolin/Prove6.7 GM INH (23:43)
[2022-02-01] MEDS ORDERED: ESTRADIOL42.5 GM VAG (23:44)
[2022-02-01] MEDS ORDERED: FLUTICASONE-SA1 EAC9 INH (23:46)
[2022-02-01] MEDS ORDERED: ARIPIPRAZOLE2 M1 PO (23:46)
[2022-02-02 01:25] LABS: BASOPHILS ABSOLUTE AUTO 0.04 K/mm3 (0.00-0.23); BASOPHILS PERCENT AUTO 0 % (0-2); EOSINOPHILS PERCENT AUTO 0 % (0-6); Hematocrit 46.7 % (33.0-51.0); Hemoglobin 15.5 g/dL (11.5-16.0); IMMATURE GRAN PERCENT AUTO 1 % (0-1); LYMPHOCYTES ABSOLUTE AUTO 1.41 K/mm3 (0.84-5.20); LYMPHOCYTES PERCENT AUTO 8 % (21-46); MONOCYTES ABSOLUTE AUTO 0.55 K/mm3 (0.16-1.47); MONOCYTES PERCENT AUTO 3 % (4-13); Mean Corpuscular HGB 30.5 pg (26.0-34.0); Mean Corpuscular HGB Conc 33.2 g/dL (31.5-36.5); Mean Corpuscular Volume 92 fL (80-100); NEUTROPHILS ABSOLUTE AUTO 15.91 K/mm3 (1.96-9.15); NEUTROPHILS PERCENT AUTO 88 % (41-73); RDW Coefficient Variation 12.8 % (11.7-14.2); RDW Standard Deviation 43.1 fL (35.1-46.3); Red Blood Cell Count 5.09 M/mm3 (3.80-5.20); White Blood Cell Count 18.01 K/mm3 (4.00-11.30)
[2022-02-02 01:30] LABS: Albumin, Blood 2.9 g/dL (3.4-5.0); Albumin/Globulin Ratio 0.7 (0.8-1.8); Bilirubin, Total 1.6 mg/dL (0.1-1.0); Bun/Creatinine Ratio 29.7 (12.0-20.0); Calcium, Blood 8.3 mg/dL (8.5-10.1); Creatinine, Blood 0.64 mg/dL (0.40-1.00); Globulin, Blood 4.3 g/dL (2.2-4.0); Potassium, Blood 3.8 mmol/L (3.5-5.5); Total Protein, Blood 7.2 g/dL (6.4-8.2)
--- NOTE | 2022-02-02 01:57 | NUR ---
PT LACTIC ACID CAME IN AT CRITICAL VALUE OF 2.6 UP FROM 2.4. HOSPITALIST NOTIFIEND INSTRUCTED TO CONTINUE TO MONITOR.
[2022-02-02 02:11] LABS: Mean Platelet Volume 11.9 fL (9.1-12.4); Platelet Count 159 K/mm3 (150-400)
--- NOTE | 2022-02-02 03:36 | NUR ---
SHIFT SUMMARY NOC ADMIT FROM ED. PT ADMITTED FOR SEVERE SEPSIS SECONDARY TO LLL PNA. PT HAS NS IV FLUIDS RUNNING AT 100mls/hr per SEPSIS PROTOCOL. 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 PT IS ON 02 2L/NC WITH SPO2 OF 100%. BEDSIDE SWALLOW EVALUATION COMPLETED WITH PT PASSING EVAL. PT PREFERS RX WHOLE IN APPLESAUCE. PT HAS A CRITICAL LACTIC ACID VALUE OF 2.6 AND HOSPITALIST WAS NOTIFIED AND INSTRUCTIONS WERE TO CONTINUE MONITORING PT FOR S/SX AND LABS. PT WBC WAS ALSO ELEVATED AT 18.01. PT HAS PUREWICK IN PLACE WITH ATTENDS ON. PT IS CURRENTLY RESTING WITH BED RAILS UP, BED IN LOWEST POSITION, AND CALL LIGHT WITHIN REACH.
--- NOTE | 2022-02-02 03:43 | NUR ---
PT HAD BEDSIDE SWALLOW EVALUATION DONE AND PT PASSED EVALUATION. PT STATES PREFERENCE OF TAKING RX WHOLE AND IN APPLESAUCE.
--- NOTE | 2022-02-02 18:43 | NUR ---
SHIFT SUMMARY PT A/O X3; PLEASANT AND COOPERATIVE WITH CARE. PT REPORTED INCREASED FATIGUE THIS SHIFT AND SLEPT FOR THE MAJORITY OF THE SHIFT. PT HAD AN EPISODE OF N/V AND TREATED PER EMR WITH GOOD EFFECT. PT SOMETIMES DISORIENTED WHEN AWAKED FROM A NAP BUT ABLE TO BE REORIENTED.
--- NOTE | 2022-02-03 03:48 | NUR ---
SHIFT SUMMARY NOC PT A/OX3. HAS MILD CONFUSION AT TIMES AFTER AWAKENING BUT QUICKLY REORIENTS. PT IS ON TELE RUNNING NSR HR 96 BPM. PT IS ON 3L/NC O2 SPO2 92%. PT HAS IV IN LAC THAT IS PATENT AND SALINE LOCKED. PT HAS BEEN FATIGUED DURING SHIFT AND HAS SLEPT ALMOST THE ENTIRE TIME. PT IS ABLE TO SWALLOW RX WITH APPLE SAUCE ONE PILL AT A TIME WITH NO PROBLEMS. VSS. PT HAS BEEN PLEASANT AND COOPERATIVE TO CARE. PT IS CURRENTLY RESTING WITH BED RAILS UP, BED IN LOWEST POSITION, AND CALL LIGHT WITHIN REACH.
[2022-02-03 05:56] LABS: BASOPHILS ABSOLUTE AUTO 0.02 K/mm3 (0.00-0.23); BASOPHILS PERCENT AUTO 0 % (0-2); EOSINOPHILS ABSOLUTE AUTO 0.09 K/mm3 (0.00-0.68); EOSINOPHILS PERCENT AUTO 1 % (0-6); Hematocrit 37.4 % (33.0-51.0); Hemoglobin 12.5 g/dL (11.5-16.0); IMMATURE GRAN ABSOLUTE AUTO 0.13 K/mm3 (0.00-0.10); IMMATURE GRAN PERCENT AUTO 1 % (0-1); LYMPHOCYTES ABSOLUTE AUTO 1.33 K/mm3 (0.84-5.20); LYMPHOCYTES PERCENT AUTO 9 % (21-46); MONOCYTES ABSOLUTE AUTO 0.55 K/mm3 (0.16-1.47); MONOCYTES PERCENT AUTO 4 % (4-13); Mean Corpuscular HGB 30.4 pg (26.0-34.0); Mean Corpuscular HGB Conc 33.4 g/dL (31.5-36.5); Mean Corpuscular Volume 91 fL (80-100); Mean Platelet Volume 12.1 fL (9.1-12.4); NEUTROPHILS ABSOLUTE AUTO 13.15 K/mm3 (1.96-9.15); NEUTROPHILS PERCENT AUTO 86 % (41-73); Platelet Count 143 K/mm3 (150-400); RDW Coefficient Variation 13.2 % (11.7-14.2); RDW Standard Deviation 44.2 fL (35.1-46.3); Red Blood Cell Count 4.11 M/mm3 (3.80-5.20); White Blood Cell Count 15.27 K/mm3 (4.00-11.30)
[2022-02-03 06:21] LABS: Magnesium, Blood 1.6 mg/dL (1.6-2.4)
[2022-02-03 06:22] LABS: Albumin, Blood 2.4 g/dL (3.4-5.0); Anion Gap 5 mmol/L (6-16); Blood Urea Nitrogen 20 mg/dL (8-24); Bun/Creatinine Ratio 30.1 (12.0-20.0); CO2, Blood 26 mmol/L (21-32); Calcium, Blood 8.3 mg/dL (8.5-10.1); Chloride, Blood 107 mmol/L (98-108); Creatinine, Blood 0.66 mg/dL (0.40-1.00); Glomerular Filtration Rate 93 (60-); Glucose, Blood 154 mg/dL (70-99); Phosphorus, Blood 2.1 mg/dL (2.5-4.9); Potassium, Blood 3.4 mmol/L (3.5-5.5); Sodium, Blood 138 mmol/L (136-145)
--- NOTE | 2022-02-03 18:35 | NUR ---
SHIFT SUMMARY NO ACUTE CHANGES THIS SHIFT. PT A/O 2-3; PLEASANT AND COOPERATIVE WITH CARE. PT'S R SIDE IS COMPLETELY FLACCID DUE TO PAST CVA. PT IS A LIFT TO THE RECLINER IN ORDER TO GET UP. VSS.
--- NOTE | 2022-02-04 04:49 | NUR ---
SHIFT SUMMARY; NO ACUTE CHANGES OVERNIGHT. PT WAS FEBRILE AT THE BEGINNING OF SHIFT, PT WAS GIVEN TYLENOL FOR PAIN WHICH ALSO ALLEVIATED HER FEVER. PT DENIES ANY PAIN OR SOB THIS PM. PT REMAINS STABLE ON 3L NC. PT CURRENTLY RESTING IN BED WITH THE BED IN THE LOWEST POSITION AND THE CALL LIGHT AT BEDSIDE. NS RUNNING AT 100MLS/HR.
[2022-02-04 06:24] LABS: Albumin, Blood 2.1 g/dL (3.4-5.0); Anion Gap 5 mmol/L (6-16); Blood Urea Nitrogen 15 mg/dL (8-24); Bun/Creatinine Ratio 24.5 (12.0-20.0); CO2, Blood 28 mmol/L (21-32); Calcium, Blood 8.4 mg/dL (8.5-10.1); Chloride, Blood 108 mmol/L (98-108); Creatinine, Blood 0.61 mg/dL (0.40-1.00); Glomerular Filtration Rate 94 (60-); Glucose, Blood 161 mg/dL (70-99); Phosphorus, Blood 2.6 mg/dL (2.5-4.9); Potassium, Blood 3.7 mmol/L (3.5-5.5); Sodium, Blood 141 mmol/L (136-145)
--- NOTE | 2022-02-04 17:36 | NUR ---
SHIFT SUMMARY NO ACUTE CHANGES THIS SHIFT. HAS BEEN AT THE BS MOST OF THE SHIFT, HELPING WHEN NEEDED. PT WORKED WITH HER TODAY AND GOT HER INTO THE CHAIR, SHE ATE LUNCH IN THE CHAIR. SHE HAS BEEN NAPPING OFF AND ON MOST OF THE SHIFT. NO C/O P/N/V. AOX2-3. WILL REPORT TO ONCOMING NURSE.
[2022-02-05 05:20] LABS: BASOPHILS ABSOLUTE AUTO 0.02 K/mm3 (0.00-0.23); BASOPHILS PERCENT AUTO 0 % (0-2); EOSINOPHILS ABSOLUTE AUTO 0.23 K/mm3 (0.00-0.68); EOSINOPHILS PERCENT AUTO 2 % (0-6); Hematocrit 31.7 % (33.0-51.0); Hemoglobin 10.4 g/dL (11.5-16.0); IMMATURE GRAN ABSOLUTE AUTO 0.06 K/mm3 (0.00-0.10); IMMATURE GRAN PERCENT AUTO 1 % (0-1); LYMPHOCYTES ABSOLUTE AUTO 1.34 K/mm3 (0.84-5.20); LYMPHOCYTES PERCENT AUTO 14 % (21-46); MONOCYTES ABSOLUTE AUTO 0.64 K/mm3 (0.16-1.47); MONOCYTES PERCENT AUTO 7 % (4-13); Mean Corpuscular HGB 29.6 pg (26.0-34.0); Mean Corpuscular HGB Conc 32.8 g/dL (31.5-36.5); Mean Corpuscular Volume 90 fL (80-100); Mean Platelet Volume 12.5 fL (9.1-12.4); NEUTROPHILS ABSOLUTE AUTO 7.13 K/mm3 (1.96-9.15); NEUTROPHILS PERCENT AUTO 76 % (41-73); Platelet Count 177 K/mm3 (150-400); RDW Coefficient Variation 13.1 % (11.7-14.2); RDW Standard Deviation 43.4 fL (35.1-46.3); Red Blood Cell Count 3.51 M/mm3 (3.80-5.20); White Blood Cell Count 9.42 K/mm3 (4.00-11.30)
[2022-02-05 05:55] LABS: Albumin, Blood 1.9 g/dL (3.4-5.0); Anion Gap 6 mmol/L (6-16); Blood Urea Nitrogen 10 mg/dL (8-24); CO2, Blood 27 mmol/L (21-32); Calcium, Blood 8.5 mg/dL (8.5-10.1); Chloride, Blood 108 mmol/L (98-108); Creatinine, Blood 0.53 mg/dL (0.40-1.00); Glomerular Filtration Rate 98 (60-); Glucose, Blood 160 mg/dL (70-99); Magnesium, Blood 1.8 mg/dL (1.6-2.4); Potassium, Blood 3.3 mmol/L (3.5-5.5); Sodium, Blood 141 mmol/L (136-145)
--- NOTE | 2022-02-05 06:38 | NUR ---
A/OX1; SELF ONLY. CALLS OUT FREQUENTLY FOR SPOUSE, PAOLO. VISUAL HALLUCINATIONS: "ORANGE FLOATING SPECKS" ABOVE HER HEAD AND "A MAN WITH A PONYTAIL WHO ISN'T SAYING ANYTHING." PATIENT EXPRESSING GRATITUDE FOR REORIENTATION; LIKES TO BE TOLD WHAT IS REAL AND WHAT IS NOT. INC AT TIMES, ALSO USED BEDPAN SUCCESSFULLY ONE TIME. Q2 TURN; 2X ASSIST. LIFT TRANSFER TO CHAIR. AXILLARY TEMP OF 101.2 F, AFEBRILE S/P PRN TYLENOL ADMIN. SLEEP PROMOTED. CALL LIGHT IN REACH; ENCOURAGED TO MAKE NEEDS KNOWN. BED ALARM SET. FREQUENT ROUNDING/ NEEDS ANTICIPATED
--- NOTE | 2022-02-05 17:46 | NUR ---
SHIFT SUMMARY PT IS AOX1-2 THIS SHIFT. THIS AFTERNOON, TELE REPORTED THE PT WAS EXPERIENCING NSR WITH MULTIPLE PAC'S. PT DENIED ANY CHEST PAIN, SOB OR DIZZINESS. HER BP WAS 172/76, P 115, O2 [address] RODRIGUEZ WAS NOTIFIED AND CHANGED HER MEDICATIONS, INCREASING HER METOPROLOL AND ADDING HER HOME MED, ABILIFY, TO HER EMAR. THE MEDICATIONS WERE ADMINISTERED. PT IS CURRENTLY SITTING UP AND EATING DINNER, DENYING ANY CHEST PAIN, SOB OR DIZZINESS. WILL REPORT TO THE ONCOMING NURSE.
[2022-02-06 05:38] LABS: BASOPHILS ABSOLUTE AUTO 0.02 K/mm3 (0.00-0.23); BASOPHILS PERCENT AUTO 0 % (0-2); EOSINOPHILS ABSOLUTE AUTO 0.28 K/mm3 (0.00-0.68); EOSINOPHILS PERCENT AUTO 3 % (0-6); Hematocrit 31.2 % (33.0-51.0); Hemoglobin 10.2 g/dL (11.5-16.0); IMMATURE GRAN ABSOLUTE AUTO 0.06 K/mm3 (0.00-0.10); IMMATURE GRAN PERCENT AUTO 1 % (0-1); LYMPHOCYTES ABSOLUTE AUTO 1.06 K/mm3 (0.84-5.20); LYMPHOCYTES PERCENT AUTO 12 % (21-46); MONOCYTES ABSOLUTE AUTO 0.75 K/mm3 (0.16-1.47); MONOCYTES PERCENT AUTO 9 % (4-13); Mean Corpuscular HGB Conc 32.7 g/dL (31.5-36.5); Mean Corpuscular Volume 92 fL (80-100); Mean Platelet Volume 12.2 fL (9.1-12.4); NEUTROPHILS ABSOLUTE AUTO 6.37 K/mm3 (1.96-9.15); NEUTROPHILS PERCENT AUTO 75 % (41-73); Platelet Count 175 K/mm3 (150-400); RDW Coefficient Variation 13.3 % (11.7-14.2); RDW Standard Deviation 45.1 fL (35.1-46.3); White Blood Cell Count 8.54 K/mm3 (4.00-11.30)
--- NOTE | 2022-02-06 05:56 | NUR ---
A/OX1-2; SELF ONLY THIS SHIFT. CALLS OUT OCCASIONALLY FOR SPOUSE, PAOLO. VISUAL HALLUCINATIONS: "ORANGE FLOATING SPECKS" ABOVE HER HEAD. LUNGS CTA. MOIST COUGH. SPO2 > 92% ON ROOM AIR INCONTINENT (USED BEDPAN SUCCESSFULLY ONE TIME FOR THIS RN). PAINFUL WHEN WIPED IN KENNA AREA (RED/EXCORIATED). Q2 TURN; 2X ASSIST. LIFT TRANSFER TO CHAIR. SLEEP PROMOTED. CALL LIGHT IN REACH; ENCOURAGED TO MAKE NEEDS KNOWN. BED ALARM SET. FREQUENT ROUNDING/ NEEDS ANTICIPATED
[2022-02-06 06:10] LABS: Albumin, Blood 1.7 g/dL (3.4-5.0); Anion Gap 5 mmol/L (6-16); Blood Urea Nitrogen 8 mg/dL (8-24); Bun/Creatinine Ratio 14.1 (12.0-20.0); CO2, Blood 28 mmol/L (21-32); Calcium, Blood 7.8 mg/dL (8.5-10.1); Chloride, Blood 112 mmol/L (98-108); Creatinine, Blood 0.57 mg/dL (0.40-1.00); Glomerular Filtration Rate 96 (60-); Glucose, Blood 133 mg/dL (70-99); Magnesium, Blood 1.7 mg/dL (1.6-2.4); Phosphorus, Blood 3.4 mg/dL (2.5-4.9); Potassium, Blood 3.3 mmol/L (3.5-5.5); Sodium, Blood 145 mmol/L (136-145)
[2022-02-06 10:33] LABS: Influenza A, PCR NEGATIVE (NEGATIVE); Influenza B, PCR NEGATIVE (NEGATIVE); Resp Syncytial Virus, PCR NEGATIVE (NEGATIVE); SARS-Cov-2 (COVID-19) PCR, MMC NEGATIVE (NEGATIVE)
--- NOTE | 2022-02-06 19:22 | NUR ---
SHIFT SUMMARY: PT A/O X 2, LIFT PT TO CHAIR. PT PLEASANT AND COOPERATIVE AND PLEASANTLY CONFUSED. PT HAS OCCASIONAL NON PRODUCTIVE COUGH TODAY. PT HAD NO COMPLAINTS OF PAIN OR NAUSEA THROUGHOUT THE DAY. PT HAD TO BE PLACED ON 3 LPM VIA NC THIS AM DUE TO SATS IN THE MID 80'S WHILE SLEEPING. PT SNORES AND IS A MOUTH BREATHER WHILE SLEEPING. ONCE O2 PLACED IN MOUTH WHILE SLEEPING SATS WERE IN THE LOW 90'S. PT IS SICK AND UNABLE TO CARE FOR PT AT THIS TIME. PT CAREGIVER UNABLE TO GO INTO THE HOME DUE TO HUSBANDS ILLNESS AT THIS TIME.
--- NOTE | 2022-02-07 06:48 | NUR ---
A/OX4; COOPERATIVE. ANXIOUS T/O SHIFT; PATIENT STATES, "I FEEL LIKE I'M GOING TO ." REALISTIC REASSURANCE PROVIDED AND PRN XANAX GIVEN PER ORDERS; HELPFUL PER PATIENT. C/O GENERALIZED DISCOMFORT; PRN ANALGESICS PER ORDERS; MINIMALLY HELPFUL PER PATIENT. TELE: ST WITH HR GENERALLY LOW 100's C/O FEELING SOB AT REST; SPO2 IS >93% ON ROOM AIR. DIMIN BLL. IND IN ROOM ON DAY SHIFT. DROWSY S/P XANAX ADMIN; BED ALARM SET FOR CONSTRUCTION SERVICES TECHNICIAN (PATIENT AGREEABLE TO USE CALL LIGHT IF NEEDING TO GET UP OVERNIGHT). SLEEP PROMOTED. CALL LIGHT IN REACH, ENCOURAGED TO MAKE NEEDS KNOWN.
--- NOTE | 2022-02-07 06:49 | NUR ---
A/OX1; SELF ONLY. CALLS OUT OCCASIONALLY FOR SPOUSE, PAOLO. NO APPARENT VISUAL HALLUCINATIONS OVERNIGHT AND CONVERSATIONS MADE A LITTLE MORE SENSE THIS SHIFT COMPARED TO PRIOR NIGHTS. C/O 11/12 PAIN TO RUE; PRN TRAMADOL ADMINISTERED; AFFIRMS DECREASE IN PAIN AT REASSESSMENT. MOIST COUGH. SPO2 > 92% ON 3 L NC. INCONTINENT (USED BEDPAN SUCCESSFULLY ONE TIME FOR THIS RN). PAINFUL WHEN WIPED IN KENNA AREA (RED/EXCORIATED). Q2 TURN; 2X ASSIST. LIFT TRANSFER TO CHAIR. SLEEP PROMOTED. CALL LIGHT IN REACH; ENCOURAGED TO MAKE NEEDS KNOWN. BED ALARM SET. FREQUENT ROUNDING/ NEEDS ANTICIPATED
[2022-02-07 07:48] LABS: Bun/Creatinine Ratio 23.1 (12.0-20.0); Calcium, Blood 8.7 mg/dL (8.5-10.1); Creatinine, Blood 0.65 mg/dL (0.40-1.00); Potassium, Blood 3.5 mmol/L (3.5-5.5)
[2022-02-07 07:58] LABS: BASOPHILS ABSOLUTE AUTO 0.03 K/mm3 (0.00-0.23); BASOPHILS PERCENT AUTO 0 % (0-2); EOSINOPHILS ABSOLUTE AUTO 0.23 K/mm3 (0.00-0.68); EOSINOPHILS PERCENT AUTO 3 % (0-6); Hematocrit 33.1 % (33.0-51.0); Hemoglobin 10.7 g/dL (11.5-16.0); IMMATURE GRAN ABSOLUTE AUTO 0.18 K/mm3 (0.00-0.10); IMMATURE GRAN PERCENT AUTO 3 % (0-1); LYMPHOCYTES ABSOLUTE AUTO 1.01 K/mm3 (0.84-5.20); LYMPHOCYTES PERCENT AUTO 14 % (21-46); MONOCYTES ABSOLUTE AUTO 0.58 K/mm3 (0.16-1.47); MONOCYTES PERCENT AUTO 8 % (4-13); Mean Corpuscular HGB 29.8 pg (26.0-34.0); Mean Corpuscular HGB Conc 32.3 g/dL (31.5-36.5); Mean Corpuscular Volume 92 fL (80-100); NEUTROPHILS ABSOLUTE AUTO 5.16 K/mm3 (1.96-9.15); NEUTROPHILS PERCENT AUTO 72 % (41-73); RDW Coefficient Variation 13.3 % (11.7-14.2); RDW Standard Deviation 45.8 fL (35.1-46.3); Red Blood Cell Count 3.59 M/mm3 (3.80-5.20); White Blood Cell Count 7.19 K/mm3 (4.00-11.30)
[2022-02-07 07:59] LABS: Mean Platelet Volume 12.8 fL (9.1-12.4); Platelet Count 186 K/mm3 (150-400)
--- NOTE | 2022-02-07 19:30 | NUR ---
SHIFT SUMMARY: PT A/O X 2, LIFT PT TO CHAIR. PT IS PLEASANTLY CONFUSED AND COOPERATIVE WITH CARE. PT ACCIDENTALLY PULLED HER IV OUT TODAY. ATTEMPTED 5 TIMES TO RESTART IV WITH NO SUCCESS BY THIS RN AND CHARGE. DR WAS OK WITH NO IV ACCESS AND DC'D TELE AND CHANGED ROCEPHIN TO VANTIN. ST EVALUATED PT TODAY AND CONTINUES SAME SWALLOW PRECAUTIONS. PT DID WELL WITH SIPPY CUP TO DRINK FLUIDS. PT ENCOURAGED THROUGHOUT DAY TO DRINK FLUIDS.
--- NOTE | 2022-02-08 07:34 | NUR ---
A/OX1; SELF ONLY. CALLS OUT OCCASIONALLY FOR SPOUSE, PAOLO. VISUAL HALLUCINATIONS OVERNIGHT AGAIN; SEEING PEOPLE IN HER ROOM. DENIES PAIN AT THIS TIME. DRY COUGH. SPO2 WAS 92% ON ROOM AIR (SPOT CHECK AFTER PATIENT REMOVED O2) AND SPO2 IS > 94% ON 2 L NC. INCONTINENT (USED BEDPAN SUCCESSFULLY ONE TIME FOR THIS RN). PUREWICK PLACED OVERNIGHT. Q2 TURN; 2X ASSIST. LIFT TRANSFER TO CHAIR. SLEEP PROMOTED. CALL LIGHT IN REACH; ENCOURAGED TO MAKE NEEDS KNOWN. BED ALARM SET. FREQUENT ROUNDING/ NEEDS ANTICIPATED
[2022-02-08 07:37] LABS: BASOPHILS ABSOLUTE AUTO 0.02 K/mm3 (0.00-0.23); BASOPHILS PERCENT AUTO 0 % (0-2); EOSINOPHILS ABSOLUTE AUTO 0.14 K/mm3 (0.00-0.68); EOSINOPHILS PERCENT AUTO 3 % (0-6); Hematocrit 34.5 % (33.0-51.0); Hemoglobin 11.4 g/dL (11.5-16.0); IMMATURE GRAN ABSOLUTE AUTO 0.17 K/mm3 (0.00-0.10); IMMATURE GRAN PERCENT AUTO 4 % (0-1); LYMPHOCYTES ABSOLUTE AUTO 0.63 K/mm3 (0.84-5.20); LYMPHOCYTES PERCENT AUTO 13 % (21-46); MONOCYTES ABSOLUTE AUTO 0.54 K/mm3 (0.16-1.47); MONOCYTES PERCENT AUTO 11 % (4-13); Mean Corpuscular Volume 91 fL (80-100); Mean Platelet Volume 11.4 fL (9.1-12.4); NEUTROPHILS ABSOLUTE AUTO 3.37 K/mm3 (1.96-9.15); NEUTROPHILS PERCENT AUTO 69 % (41-73); Platelet Count 230 K/mm3 (150-400); RDW Coefficient Variation 13.2 % (11.7-14.2); RDW Standard Deviation 43.8 fL (35.1-46.3); White Blood Cell Count 4.87 K/mm3 (4.00-11.30)
[2022-02-08 07:54] LABS: Bun/Creatinine Ratio 20.6 (12.0-20.0); Calcium, Blood 8.4 mg/dL (8.5-10.1); Creatinine, Blood 0.54 mg/dL (0.40-1.00); Potassium, Blood 3.4 mmol/L (3.5-5.5)
--- NOTE | 2022-02-08 17:24 | NUR ---
SHIFT SUMMARY PT HAS BEEN SLEEPING A MAJORITY OF THE SHIFT, WORKING WITH PT FOR PART OF THE DAY. SHE HAS BEE USING OXYGEN ALL SHIFT WITH NO C/O SOB/CP/N/V/P. POSSIBLE THAT SHE MAY GO HOME TOMORROW BUT THAT IS NOT DETERMINED. WILL REPORT TO ONCOMING NURSE.
--- NOTE | 2022-02-09 04:41 | NUR ---
WARDROBE CONSULTANT SUMMARY PT IS ALERT TO SELF BUT CAN MAKE HER NEEDS KNOWN VERBALLY TO STAFF. PT HAD UNEVENTFUL NIGHT SHE SLEPT COMFORTABLY FOR MOST OF THE SHIFT. O2 SATS >92% ON 2L NC. BP STABLE. PT DENYING ANY PAIN OR NAUSEA THIS SHIFT.
[2022-02-09 06:42] LABS: Bun/Creatinine Ratio 21.3 (12.0-20.0); Calcium, Blood 8.7 mg/dL (8.5-10.1); Creatinine, Blood 0.66 mg/dL (0.40-1.00); Potassium, Blood 3.4 mmol/L (3.5-5.5)
--- NOTE | 2022-02-09 14:18 | NUR ---
Spoke with RN Efren Moses and Primary RN Jess. Pt ready for D/C but Pt's spouse who is primary caregiver is ill with COVID. Pt resting in bed and is pleasantly confused. Pt engages in non sensical conversation. Offered supportive visit and therapeutic listening. Ended visit to allow Pt to rest. Palliative Care will remain available.
--- NOTE | 2022-02-09 17:45 | NUR ---
SHIFT SUMMARY NO ACUTE CHANGES WITH THIS PT AT THIS TIME, SHE HAS BEEN RESTING COMFORTABLY ALL SHIFT. SHE WAS IN THE CHAIR FOR THE AM PORTION OF THE SHIFT. SHE IS AOX1, SELF. PALLITATIVE CARE VISITED HER TODAY. STILL WAITING FOR HER TO FEEL BETTER AT HOME BEFORE SHE IS DISCHARGED HOME. HE IS HER PRIMARY CAREGIVER. WILL REPORT TO ONCOMING NURSE.
--- NOTE | 2022-02-10 04:46 | NUR ---
SHIFT SUMMARY PATIENT HAD NO ACUTE CHANGES OBSERVED. ALERT TO SELF WITH CONFUSION. BEDREST/LIFT AND NO IV ACCESS. PUREWICK IN PLACE AND DRAINING ON SUCTION. ON 2L O2 N/C. DENIES PAIN, SOB, AND N/V. VSS WITH LOW GRADE TEMP 99.5. VISUAL HALLUCINATIONS AT TIMES CALLING OUT TO PEOPLE SHE SEE'S. CALL LIGHT IN REACH. BED IN LOWEST POSITION. WILL CONTINUE TO MONITOR UNTIL DAY SHIFT NURSE ASSUMES CARE.
[2022-02-10 06:26] LABS: BASOPHILS ABSOLUTE AUTO 0.01 K/mm3 (0.00-0.23); BASOPHILS PERCENT AUTO 0 % (0-2); EOSINOPHILS ABSOLUTE AUTO 0.08 K/mm3 (0.00-0.68); EOSINOPHILS PERCENT AUTO 1 % (0-6); Hematocrit 39.8 % (33.0-51.0); Hemoglobin 13.1 g/dL (11.5-16.0); IMMATURE GRAN ABSOLUTE AUTO 0.08 K/mm3 (0.00-0.10); IMMATURE GRAN PERCENT AUTO 1 % (0-1); LYMPHOCYTES PERCENT AUTO 17 % (21-46); MONOCYTES ABSOLUTE AUTO 0.41 K/mm3 (0.16-1.47); MONOCYTES PERCENT AUTO 7 % (4-13); Mean Corpuscular HGB 29.7 pg (26.0-34.0); Mean Corpuscular HGB Conc 32.9 g/dL (31.5-36.5); Mean Corpuscular Volume 90 fL (80-100); Mean Platelet Volume 10.8 fL (9.1-12.4); NEUTROPHILS PERCENT AUTO 73 % (41-73); Platelet Count 288 K/mm3 (150-400); RDW Coefficient Variation 13.1 % (11.7-14.2); RDW Standard Deviation 43.5 fL (35.1-46.3); Red Blood Cell Count 4.41 M/mm3 (3.80-5.20); White Blood Cell Count 5.88 K/mm3 (4.00-11.30)
[2022-02-10 06:49] LABS: Bun/Creatinine Ratio 16.4 (12.0-20.0); Calcium, Blood 8.7 mg/dL (8.5-10.1); Creatinine, Blood 0.61 mg/dL (0.40-1.00); Potassium, Blood 3.5 mmol/L (3.5-5.5)
--- NOTE | 2022-02-10 16:29 | NUR ---
SHIFT SUMMARY PATIENT IS ALERT AND ORIENTED TO SELF ONLY. PATIENT HAS HAD NO ACUTE EVENTS THIS SHIFT. VITAL SIGNS REVIEWED. PATIENT HAS BEEN PLEASENTLY CONFUSED. PATIENT HAS BEEN UP IN CHAIR MOST OF SHIFT. PATIENT HAS PUREWICK IN PLACE. PATIENT IS NOT ON O2 THIS SHIFT. PATIENT HAS BEEN HAVING VISUAL HALLUCINATIONS OFF AND ON THIS SHIFT. BED IN LOCKED AND LOWEST POSITION. CALL LIGHT IN PLACE. WILL MONITOR UNTIL SHIFT CHANGE.
--- NOTE | 2022-02-11 05:09 | NUR ---
SHIFT UNREMARKABLE. PT SLEPT THROUGH SHIFT AFTER 2100 MEDICATION ADMINISTRATION. SPEECH IS COMPLETELY NONSENSICAL, AOX1. PLEASANT AND COOPERATIVE WITH CARE. CALL LIGHT LEFT WITHIN REACH.
--- NOTE | 2022-02-11 18:29 | NUR ---
SHIFT SUMMARY PATIENT IS ALERT AND ORIENTED TO SELF. PATIENT HAS HAD NO ACUTE EVENTS THIS SHIFT. VITAL SIGNS REVIEWED. PATIENT HAS BEEN RESTING MOST OF SHIFT IN CHAIR. PATIENT HAS HAD NO COMPLAINTS OF PAIN, NAUSEA, SOB OR VOMITTING. PUREWICK CHANGED DURING SHIFT. BED IN LOCKED AND LOWEST POSITION. CALL LIGHT IN PLACE. WILL MONITOR UNTIL SHIFT.
--- NOTE | 2022-02-12 05:16 | NUR ---
SHIFT MOSTLY UNREMARKABLE. EARLY IN SHIFT, PT COMPLAINED OF NOT FEELING GOOD AND APPEARED FLUSHED. WHEN ASKED TO DESCRIBE SENSATION, PATIENT WAS UNABLE TO ADEQUATELY CONVEY COMPLAINTS. VITALS WNL. BLOOD PRESSURE MILDLY ELEVATED. PATIENT WAS ABLE TO SLEEP AFTER PRN TRAMADONE ADMINISTRATION AND WAS WITHOUT COMPLAINTS UPON WAKING. OTHERWISE PLEASANT AND COOPERATIVE WITH CARE. CALL LIGHT LEFT WITHIN REACH.
--- NOTE | 2022-02-12 15:48 | NUR ---
SHIFT SUMMARY PATIENT IS ALERT AND ORIENTED TO SELF. PATIENT HAS BEEN UP IN CHAIR MOST OF SHIFT. PATIENT HAS ALSO BEEN RESTING COMFORTABLE THIS SHIFT, EASILY ARROUSABLE. PATIENT HAS HAD NO ACUTE EVENTS THIS SHIFT. VITAL SIGNS REVIEWED. PATIENT HAS NOT COMPLAINED OF PAIN, NAUSEA, SOB OR VOMITTING THIS SHIFT. BED IN LOCKED AND LOWEST POSITION. CALL LIGHT IN PLACE. WILL MONITOR UNTIL SHIFT CHANGE.
--- NOTE | 2022-02-13 04:18 | NUR ---
SHIFT UNREMARKABLE. PATIENT TOOK 2100 MEDICATIONS WITHOUT DIFFICULTY. SLEPT THROUGH REMAINDER OF SHIFT. PATIENT REPORTED THAT DAY SHIFT YESTERDAY WAS "CRUMMY" BUT DENIED PAIN OR DISCOMFORT. CALL LIGHT LEFT WITHIN REACH.
[2022-02-13 05:33] LABS: Hematocrit 38.3 % (33.0-51.0); Hemoglobin 12.6 g/dL (11.5-16.0); Mean Corpuscular HGB 29.9 pg (26.0-34.0); Mean Corpuscular HGB Conc 32.9 g/dL (31.5-36.5); Mean Corpuscular Volume 91 fL (80-100); Mean Platelet Volume 11.2 fL (9.1-12.4); Platelet Count 311 K/mm3 (150-400); RDW Coefficient Variation 13.2 % (11.7-14.2); RDW Standard Deviation 43.5 fL (35.1-46.3); Red Blood Cell Count 4.22 M/mm3 (3.80-5.20); White Blood Cell Count 6.18 K/mm3 (4.00-11.30)
[2022-02-13 05:56] LABS: Bun/Creatinine Ratio 26.5 (12.0-20.0); Calcium, Blood 8.9 mg/dL (8.5-10.1); Creatinine, Blood 0.72 mg/dL (0.40-1.00); Potassium, Blood 3.3 mmol/L (3.5-5.5)
[2022-02-13 06:31] LABS: BAND PERCENT MAN 2 % (0-8); BASOPHILS PERCENT MAN 0 % (0-2); EOSINOPHILS ABSOLUTE MAN 0.06 K/mm3 (0.00-0.68); EOSINOPHILS PERCENT MAN 1 % (0-6); LYMPHOCYTES % ATYPICAL MANUAL 1 % (0-0); LYMPHOCYTES ABSOLUTE MAN 2.47 K/mm3 (0.84-5.20); LYMPHOCYTES PERCENT MAN 39 % (21-46); MONOCYTES ABSOLUTE MAN 0.18 K/mm3 (0.16-1.47); MONOCYTES PERCENT MAN 3 % (4-13); NEUTROPHILS ABSOLUTE MAN 3.46 K/mm3 (1.96-9.15); SEG NEUTROPHILS PERCENT MAN 54 % (41-73); TOTAL CELLS COUNTED 100
--- NOTE | 2022-02-13 17:11 | NUR ---
SHIFT SUMMARY PT A&Ox1-2 BUT PLEASANT. NO ACUTE CHANGES. PT UP TO CHAIR, USING LIFT, FOR AFTERNOON. PT HAD ONE EPISODE OF ORANGE, LOOSE STOOL IN AM. PUREWICK IN PLACE. NO C/O PAIN. VSS. BED IN LOWEST POSITION AND CALL LIGHT IN REACH.
--- NOTE | 2022-02-14 05:06 | NUR ---
SHIFT SUMMARY PATIENT IS ALERT BUT ONLY ORIENTED TO SELF. PATIENT IS PLEASENT AND COOPERATIVE WITH CARE. NO ACUTE EVENTS THIS SHIFT. VITAL SIGNS REVIEWED. PATIENT HAS BEEN RESTING IN BED ALL SHIFT. TURNED Q2. BED IN LOCKED AND LOWEST POSITION. CALL LIGHT IN PLACE. WILL MONITOR UNTIL SHIFT CHANGE
[2022-02-14 08:02] LABS: Albumin, Blood 2.3 g/dL (3.4-5.0); Anion Gap 7 mmol/L (6-16); Blood Urea Nitrogen 20 mg/dL (8-24); Bun/Creatinine Ratio 32.4 (12.0-20.0); CO2, Blood 29 mmol/L (21-32); Calcium, Blood 8.8 mg/dL (8.5-10.1); Chloride, Blood 106 mmol/L (98-108); Creatinine, Blood 0.62 mg/dL (0.40-1.00); Glomerular Filtration Rate 94 (60-); Glucose, Blood 167 mg/dL (70-99); Phosphorus, Blood 3.6 mg/dL (2.5-4.9); Potassium, Blood 3.1 mmol/L (3.5-5.5); Sodium, Blood 142 mmol/L (136-145)
--- NOTE | 2022-02-14 18:38 | NUR ---
SHIFT SUMMARY PT A&OX1-SELF AND IN PLEASENT MOOD T/O SHIFT. PT UP IN CHAIR MOST OF SHIFT, TOLERATING WELL. PT HALLUCINATES-SEE NATS, TALKS TO PEOPLE WHO ARE NOT THERE, PLEASENT. CALL LIGHT W/IN REACH. NO CALLS FROM SPOUSE THIS SHIFT. VSS. TOLERATING MIN PO INTAKE, PT REFUSING MEALS-STATES SHE IS FULL.
--- NOTE | 2022-02-15 07:14 | NUR ---
Shift Summary Pt AOx1-2, pleasantly confused. Q2 turns which were tolerated well. Incont voids, attends changed as needed. Slept well t/o the night. Meds whole with applesauce. VSS, pleasant and cooperative with care.
--- NOTE | 2022-02-15 17:08 | NUR ---
SHIFT SUMMARY PT A&OX1 AND IN PLEASENT MOOD. PT APPEARED VERY LETHARGIC UNTIL APPROX 11AM. UP TO CHAIR FOR LUNCH W/ LIFT. WORKED W/ PHYSICAL AND OCC. THERAPY THIS SHIFT. PT SPOUSE SPOKE W/ DC PLANNING-DC APPEAL THIS SHIFT, PLAN FOR POSSIBLE DC TOMORROW. TOLERATING PO INTAKE WELL, ATE APPROX. 65% OF LUNCH. NO HALLUCINATION THIS SHIFT.
--- NOTE | 2022-02-16 05:46 | NUR ---
SHIFT SUMMARY PATIENT IS ALERT AND ORIENTED TO SELF, FOLLOWS DIRECTIONS EASILY. HAD NO COMPLAINTS OF PAIN OR SHORTNESS OF BREATH. NO ACUTE ISSUES NOTED OVERNIGHT. CALL LIGHT WITHIN REACH. REPORT GIVEN TO ONCOMING RN.
--- NOTE | 2022-02-16 16:37 | NUR ---
SHIFT SUMMARY PT A&OX1 AND IN PLEASENT MOOD T/O SHIFT. LIFT UP TO CHAIR FOR LUNCH, TOLERATING PO INTAKE. RA. DC ORDERED AND COMPLETE IN SYSTEM-SPOUSE APPEALING @ THIS TIME. VSS. CALL LIGHT W/IN REACH.
[2022-02-17 05:03] LABS: BASOPHILS ABSOLUTE AUTO 0.02 K/mm3 (0.00-0.23); BASOPHILS PERCENT AUTO 0 % (0-2); EOSINOPHILS PERCENT AUTO 4 % (0-6); Hematocrit 38.5 % (33.0-51.0); Hemoglobin 12.6 g/dL (11.5-16.0); IMMATURE GRAN ABSOLUTE AUTO 0.02 K/mm3 (0.00-0.10); IMMATURE GRAN PERCENT AUTO 0 % (0-1); LYMPHOCYTES PERCENT AUTO 40 % (21-46); MONOCYTES ABSOLUTE AUTO 0.41 K/mm3 (0.16-1.47); MONOCYTES PERCENT AUTO 8 % (4-13); Mean Corpuscular HGB 29.9 pg (26.0-34.0); Mean Corpuscular HGB Conc 32.7 g/dL (31.5-36.5); Mean Corpuscular Volume 91 fL (80-100); Mean Platelet Volume 11.9 fL (9.1-12.4); NEUTROPHILS ABSOLUTE AUTO 2.53 K/mm3 (1.96-9.15); NEUTROPHILS PERCENT AUTO 48 % (41-73); Platelet Count 362 K/mm3 (150-400); RDW Coefficient Variation 13.1 % (11.7-14.2); RDW Standard Deviation 43.3 fL (35.1-46.3); Red Blood Cell Count 4.22 M/mm3 (3.80-5.20); White Blood Cell Count 5.28 K/mm3 (4.00-11.30)
[2022-02-17 05:23] LABS: Albumin, Blood 2.6 g/dL (3.4-5.0); Anion Gap 5 mmol/L (6-16); Blood Urea Nitrogen 21 mg/dL (8-24); CO2, Blood 31 mmol/L (21-32); Chloride, Blood 106 mmol/L (98-108); Creatinine, Blood 0.66 mg/dL (0.40-1.00); Glomerular Filtration Rate 93 (60-); Glucose, Blood 154 mg/dL (70-99); Magnesium, Blood 2.2 mg/dL (1.6-2.4); Phosphorus, Blood 3.4 mg/dL (2.5-4.9); Potassium, Blood 3.7 mmol/L (3.5-5.5); Sodium, Blood 142 mmol/L (136-145)
--- NOTE | 2022-02-17 06:04 | NUR ---
SHIFT SUMMARY PATIENT ALERT AND ORIENTED X2. HAD NO COMPLAINTS OF PAIN OR SHORTNESS OF BREATH. NO ACUTE ISSUES NOTED OVERNIGHT. CALL LIGHT WITHIN REACH. REPORT GIVEN TO ONCOMING RN.
--- NOTE | 2022-02-17 11:06 | NUR ---
RN NOTE [facility] BOOKED FOR DISCHARGE HOME. DISCHARGE INSTRUCTIONS PRINTED OUT AND PUT WITH BELONGINGS (INCLUDING HER WHEELCHAIR). I CALLED HER AND REVIEWED DISCHARGE INSTRUCTIONS WITH HIM AND ANSWERED ANY QUESTIONS. MS KEATING IS ORIENTATED TO HER OWN NAME, NOT TO DATE, PLACE OR SITUATION. SHE IS ABLE TO FOLLOW SIMPLE INSTRUCTIONS, BUT IS VERY FORGETFUL. SHE WAS ABLE TO HELP TO TURN AND ROLL BY MOVING HER LEFT ARM AND LEG THIS MORNING FOR BED BATH. UNABLE TO MOVE RIGHT HAND/ARM/R FOOT OR LEG. SHE DENIED BEING ABLE TO FEEL SENSATION TO HER RIGHT ARM OR EITHER FEET. SHE DENIED PAIN OR SOB, ON ROOM AIR. MOIST NON PRODUCTIVE COUGH. BED LOW. CALL LIGHT IN REACH.
--- NOTE | 2022-02-17 11:25 | NUR ---
DISCHARGE VIA [facility] AT 1123AM. BELONGINGS IN HER WHEELCHAIR TAKEN BY TRANSPORT. LIFTED ONTO [facility] VIA OVERHEAD LIFT.
== END 2022-02-17 11:28 | disposition home health service (06) | DRG 871 ==
LOC: ER 19:12 → MEDS 21:54 → ENPENDDIS 02-15 18:33 → MEDS 02-17 11:28
PROVIDERS: Family Medicine; Internal Medicine; Physician Assistant; ADMIT Internal Medicine
DX: A41.9 Sepsis, unspecified organism (principal); G93.41 Metabolic encephalopathy; J18.9 Pneumonia, unspecified organism; J96.01 Acute respiratory failure with hypoxia; I69.351 Hemiplegia and hemiparesis following cerebral infarction affecting right dominant side; E87.29 Other acidosis; Z20.822 Contact with and (suspected) exposure to COVID-19; I10 Essential (primary) hypertension; M62.838 Other muscle spasm; F41.8 Other specified anxiety disorders; E80.6 Other disorders of bilirubin metabolism; R65.20 Severe sepsis without septic shock; Z90.49 Acquired absence of other specified parts of digestive tract; Z90.89 Acquired absence of other organs; Z90.710 Acquired absence of both cervix and uterus; Z98.890 Other specified postprocedural states; Z88.1 Allergy status to other antibiotic agents; Z88.2 Allergy status to sulfonamides; Z79.02 Long term (current) use of antithrombotics/antiplatelets; Z79.899 Other long term (current) drug therapy
CPT/HCPCS: 0241U; 36415; 36416; 70450; 71045; 80048; 80053; 80069; 82330; 83605; 83735; 85025; 87040; 92526; 92610; 94640; 94664; 94760; 96365; 96366; 96375; 97110; 97112; 97162; 97165; 97530; 99285-25; A9270; J0696; J1650; J2405; J3475; J7030; J7060

== ENCOUNTER → 2022-03-23 | Outpatient (CLI) | payer OTHER ==
[~2022-03-23] MED LIST changes: +ARIPIPRAZOLE2 M1 PO; +ESTRADIOL42.5 GM VAG; +FLUTICASONE-SA1 EAC9 INH; +IPRAT-ALBUT 0.5-3 ML INH; +Ventolin/Prove6.7 GM INH
[2022-03-23 10:46] LABS: Source, Urine Voided
[2022-03-23 13:06] LABS: White Blood Cells, Urine 25-50 /hpf (0-5)
[2022-03-23 13:07] LABS: Bacteria Many /hpf; Squamous Epithelial Cells Few /hpf (Few)
== END | disposition home or self-care (01) ==
LOC: LAB SHORT 08:45 → LAB 08:45
PROVIDERS: Family Medicine
DX: R44.1 Visual hallucinations (principal)
CPT/HCPCS: 81015; 87077; 87086; 87186

== ENCOUNTER → 2022-05-01 | Outpatient (CLI) | payer OTHER | END | disposition home or self-care (01) | LOC: LAB 13:20 → LAB SHORT 13:20 | DX: R30.0 Dysuria (principal) | CPT/HCPCS: 87086 ==

== ENCOUNTER → 2022-05-14 | Outpatient (CLI) | payer OTHER ==
[2022-05-15 12:28] LABS: Stool Occult Blood Guaiac 1 Neg (Neg)
== END | disposition home or self-care (01) ==
LOC: LAB SHORT 15:30 → LAB 15:30
PROVIDERS: Family Medicine
DX: Z12.11 Encounter for screening for malignant neoplasm of colon (principal)
CPT/HCPCS: 82270

== ENCOUNTER → 2022-06-02 | Outpatient (CLI) | payer OTHER ==
[2022-06-02 14:16] LABS: Microalb/Creat Ratio UR, Rand 12.609 mg/g (0.000-30.000); Microalbumin, Random Urine 20.3 mg/L (0.000-20.000)
== END | disposition home or self-care (01) ==
LOC: LAB SHORT 10:00 → LAB 10:00
PROVIDERS: Family Medicine
DX: R73.03 Prediabetes (principal)
CPT/HCPCS: 82043; 82570

== ENCOUNTER 2022-11-01 10:09 | Inpatient (IN) | payer OTHER ==
[~2022-11-01] VITALS: Ht 167.6 cm; Wt 86.9 kg
[2022-11-01 10:56] LABS: BASOPHILS ABSOLUTE AUTO 0.02 K/mm3 (0.00-0.23); BASOPHILS PERCENT AUTO 0 % (0-2); EOSINOPHILS ABSOLUTE AUTO 0.18 K/mm3 (0.00-0.68); EOSINOPHILS PERCENT AUTO 3 % (0-6); Hematocrit 40.8 % (33.0-51.0); Hemoglobin 13.6 g/dL (11.5-16.0); IMMATURE GRAN ABSOLUTE AUTO 0.01 K/mm3 (0.00-0.10); IMMATURE GRAN PERCENT AUTO 0 % (0-1); LYMPHOCYTES ABSOLUTE AUTO 0.97 K/mm3 (0.84-5.20); LYMPHOCYTES PERCENT AUTO 18 % (21-46); MONOCYTES ABSOLUTE AUTO 0.35 K/mm3 (0.16-1.47); MONOCYTES PERCENT AUTO 7 % (4-13); Mean Corpuscular HGB 31.3 pg (26.0-34.0); Mean Corpuscular HGB Conc 33.3 g/dL (31.5-36.5); Mean Corpuscular Volume 94 fL (80-100); Mean Platelet Volume 12.2 fL (9.1-12.4); NEUTROPHILS ABSOLUTE AUTO 3.77 K/mm3 (1.96-9.15); NEUTROPHILS PERCENT AUTO 71 % (41-73); Platelet Count 192 K/mm3 (150-400); RDW Coefficient Variation 12.6 % (11.7-14.2); RDW Standard Deviation 43.5 fL (35.1-46.3); Red Blood Cell Count 4.35 M/mm3 (3.80-5.20)
[2022-11-01 11:09] LABS: Albumin, Blood 3.1 g/dL (3.4-5.0); Albumin/Globulin Ratio 0.8 (0.8-1.8); Bilirubin, Total 0.6 mg/dL (0.1-1.0); Bun/Creatinine Ratio 19.8 (12.0-20.0); Creatinine, Blood 0.71 mg/dL (0.40-1.00); Globulin, Blood 4.1 g/dL (2.2-4.0); Magnesium, Blood 1.9 mg/dL (1.6-2.4); Potassium, Blood 3.9 mmol/L (3.5-5.5); Total Protein, Blood 7.2 g/dL (6.4-8.2)
[2022-11-01 11:11] LABS: Base Excess Venous 4.2 mmol/L; Bicarbonate Venous 26.9 mmol/L (24.0-30.0); PCO2 Venous 48.9 mmHg (38-42); pH Blood Venous 7.39 (7.34-7.37)
[2022-11-01 11:19] LABS: Source, Urine Straight Cath
[2022-11-01] MEDS ORDERED: FORMOTEROL20 MCG/2 M INH (11:23)
[2022-11-01] MEDS ORDERED: Premarin 225 MG/5 ML VAG (11:25)
[2022-11-01] MEDS ORDERED: QUETIAPINE FUMA25 MG PO (11:26)
[2022-11-01] MEDS ORDERED: TRAM50 PO (11:28)
[2022-11-01 11:30] LABS: Bilirubin, Urine Neg (Neg); Blood, Urine Neg (Neg); Glucose Qualitative, Urine Neg (Neg); Ketones, Urine Neg (Neg); Leukocyte Esterase, Urine 1+ (Neg); Nitrite, Urine Neg (Neg); Protein, Urine 1+ (Neg); Urobilinogen, Urine NORM (Normal)
[2022-11-01 11:39] LABS: Appearance, Urine Hazy (Clear); Bacteria Few /hpf; Color, Urine Yellow (P-Yellow); Red Blood Cells, Urine 0-2 /hpf (0-2); Squamous Epithelial Cells Few /hpf (Few); Yeast/Fungi Urine Few /hpf
[2022-11-01 12:04] LABS: Adenovirus Not Detected (NOT DETECT); Bordetella pertussis Not Detected (NOT DETECT); Chlamydophila pneumoniae Not Detected (NOT DETECT); Coronavirus 229E Not Detected (NOT DETECT); Coronavirus HKU1 Not Detected (NOT DETECT); Coronavirus NL63 Not Detected (NOT DETECT); Coronavirus OC43 Not Detected (NOT DETECT); Human Metapneumovirus Not Detected (NOT DETECT); Human Rhinovirus/Enterovirus Not Detected (NOT DETECT); Influenza A/2009-H1 Not Detected (NOT DETECT); Influenza A/H1 Not Detected (NOT DETECT); Influenza A/H3 Not Detected (NOT DETECT); Influenza B Not Detected (NOT DETECT); Mycoplasma pneumoniae Not Detected (NOT DETECT); Parainfluenza Virus 1 Not Detected (NOT DETECT); Parainfluenza Virus 2 Not Detected (NOT DETECT); Parainfluenza Virus 3 Not Detected (NOT DETECT); Parainfluenza Virus 4 Not Detected (NOT DETECT); Respiratory Syncytial Virus Not Detected (NOT DETECT); SARS-Cov-2 (COVID-19), BioFire Not Detected (NOT DETECT)
--- NOTE | 2022-11-01 14:34 | NUR ---
ED Palliative Care Consult Spoke with Dr Gallardo and discussed case. Pt to the ED with increased weakness and possible UTI. Pt to be admitted. Pt and spouse may benefit from code status discussion and completing POLST. Pt has past medical history of CVA and HTN. Pt resting on gurney with her eyes closed. Pt's spouse Dario at bedside. Offered therapeutic listening as Dario reports being Pt's main caregiver. He reports Pt recieves 6 hours a week caregiver assistance. Pt requires assistance with transfers, is wheel chair bound, requires assitance with bathing, dressing, and is mainly incontinent. He reports Pt has a history of re-occuring UTI's. Continued therapeutic listening. Engaged in therapeutic discussion regarding code status wishes. Educated on life sustaining treatments including risks and implications to CPR. Dario reports Pt's wishes are DNR. Engaged in gentle discussion of planning for the future including the potential need to consider hospice in the future. Assisted Dario with completing POLST. Brief discussion on considering applying for medicaid through [employer] and answered questions. ED Ship Pilot Caroline in to speak with spouse. Ended visit. Obtained signature for POLST from Dr Gallardo. Obtained copy of POLST and will send to medical records. Provided original POLST back to spouse Dario. Spoke with Dr Damon who is admitting Pt. Placed DNR order for Pt in [facility] per V/O from Dr Damon. Palliative Care will remain available.
[2022-11-01] MEDS ORDERED: ABILIFY MYCITE5 M2 PO (15:04)
[2022-11-01 15:34] VITALS: BP 161/81
--- NOTE | 2022-11-01 16:13 | NUR ---
MS KEATING WAS ADMITTED FROM THE ER AT 1515HRS. SHE WAS TRANSFERED USING A SLIDE SHEET FROM THE STRETCHER. MS KEATING HAS FLACID R ARM WITH R HAND CONTRACTURE. FLACID R LEG. R FACIAL DROOP. SHE REPEATED "ALRIGHT" SEVERAL TIMES ON FIRST ARRIVAL AND HAS NOT VERBALISED SINCE. SHE IS ABLE TO SQUEEZE MY HAND WITH HER LEFT HAND AND WIGGLE HER LEFT TOES ON REQUEST. HER HEAD IS TURNED TO THE LEFT SIDE. HER AND CAREGIVER PAOLO IS PRESENT ON ADMISSION AND SAID THAT HER HEAD HAS BEEN TURNED TO THE LEFT FOR 2 DAYS, PRIOR TO THAT IT WAS ALWAYS TURNED TO THE RIGHT. PAOLO SAID THAT WITH A LIFT DEVICE AT HOME SHE IS ABLE TO TRANSFER TO A CHAIR WITH HIS ASSISTANCE. HE SAID SHE IS ABLE TO EAT BITE SIZED FOOD AND FEED HERSELF ONCE IT'S SET UP AND SHE CAN NORMALLY DRINK FINE WITH A STRAW. SHE IS INCONTINENT OF URINE AND HAS A WICKING DEVICE IN PLACE, HAS URINATED YELLOW URINE. KENNA AREA AND COCCYX IS RED. R FOOT DROP NOTED. PAOLO SAID THAT MS KEATING SOMETIMES SAYS NO WHEN SHE MEANS YES. LAST BM WAS SUNDAY PER PAOLO, HE SAID THAT HER NORMAL REGIME IS TO HAVE A LARGE BM EVERY 5 TO 7 DAYS. BED LOW, CALL LIGHT IN REACH, BED ALARM ON.
[2022-11-01 19:36] VITALS: BP 142/66
[2022-11-02 05:00] VITALS: BP 133/58
[2022-11-02 06:14] LABS: BASOPHILS ABSOLUTE AUTO 0.03 K/mm3 (0.00-0.23); BASOPHILS PERCENT AUTO 1 % (0-2); EOSINOPHILS ABSOLUTE AUTO 0.18 K/mm3 (0.00-0.68); EOSINOPHILS PERCENT AUTO 3 % (0-6); Hematocrit 42.3 % (33.0-51.0); IMMATURE GRAN ABSOLUTE AUTO 0.02 K/mm3 (0.00-0.10); IMMATURE GRAN PERCENT AUTO 0 % (0-1); LYMPHOCYTES ABSOLUTE AUTO 1.62 K/mm3 (0.84-5.20); LYMPHOCYTES PERCENT AUTO 27 % (21-46); MONOCYTES ABSOLUTE AUTO 0.49 K/mm3 (0.16-1.47); MONOCYTES PERCENT AUTO 8 % (4-13); Mean Corpuscular HGB 30.6 pg (26.0-34.0); Mean Corpuscular HGB Conc 33.1 g/dL (31.5-36.5); Mean Corpuscular Volume 93 fL (80-100); Mean Platelet Volume 11.7 fL (9.1-12.4); NEUTROPHILS ABSOLUTE AUTO 3.74 K/mm3 (1.96-9.15); NEUTROPHILS PERCENT AUTO 62 % (41-73); Platelet Count 217 K/mm3 (150-400); RDW Coefficient Variation 12.4 % (11.7-14.2); RDW Standard Deviation 42.3 fL (35.1-46.3); Red Blood Cell Count 4.57 M/mm3 (3.80-5.20); White Blood Cell Count 6.08 K/mm3 (4.00-11.30)
[2022-11-02 06:28] LABS: Bun/Creatinine Ratio 13.3 (12.0-20.0); Calcium, Blood 8.9 mg/dL (8.5-10.1); Creatinine, Blood 0.68 mg/dL (0.40-1.00); Potassium, Blood 3.7 mmol/L (3.5-5.5)
--- NOTE | 2022-11-02 06:42 | NUR ---
PT EDUCATED ON [facility] FIRE SAFETY EXPLOSIVES/NON SMOKING SAFETY POLICY AND VERBALIZED UNDERSTANDING.
[2022-11-02 07:20] VITALS: BP 155/74
--- NOTE | 2022-11-02 07:21 | NUR ---
PT A/O X 3. HAS R SIDE FLACCIDITY FROM RECENT CVA. PT COMMUNICATES NEEDS APPROPRIATELY, BUT CONFUSES YES FOR NO PT A/O X 3. HAS R SIDE FLACCIDITY FROM RECENT CVA. PT COMMUNICATES NEEDS APPROPRIATELY, BUT CONFUSES YES FOR NO AND VICE VERSA. PT HAS SMALL BLANCHABLE RED SPOT ON R COCCYX AND HAS MEPILEX IN PLACE C/D/I. PT HAS PUREWICK IN PLACE DRAINING TO SUCTION. PT IS CURRENTLY RESTING WITH BED IN LOWEST POSITION, AND CALL LIGHT WITHIN REACH. AND VICE VERSA. PT HAS SMALL BLANCHABLE RED SPOT ON R COCCYX AND HAS MEPILEX IN PLACE C/D/I. PT HAS PUREWICK IN PLACE DRAINING TO SUCTION. PT IS CURRENTLY RESTING WITH BED IN LOWEST POSITION, AND CALL LIGHT WITHIN REACH.
[2022-11-02 14:46] VITALS: BP 107/46
[2022-11-02 14:48] VITALS: BP 131/66
--- NOTE | 2022-11-02 17:14 | NUR ---
SHIFT SUMMARY PT AXO TO SELF AND ANSWERS QUESTIONS BUT NOT APPROPRIATELY. VSS. PT RIGHT SIDED DEFICITS. PLEASANT AND COOPERATIVE WITH CARE. MEDICATED FOR HEADACHE ONCE THIS SHIFT. PT RESTING THROUGHOUT THE DAY. PT ORDERED BUT NOT COMPLETED THIS SHIFT. PT DENIES SOB AND NV. BED IN LOW POSITION, CALL LIGHT WITHIN REACH. PT'S IN THIS MORNING, SPOKE WITH DR NICOLE, HE PREFERS HER TO STAY ANOTHER NIGHT.
[2022-11-02 20:32] VITALS: BP 150/71
--- NOTE | 2022-11-03 03:37 | NUR ---
SHIFT SUMMARY NOC PT A/O X 2-3. PLEASANT AND COOPERATIVE WITH CARE. PT HAD EPISODE OF N/V PT STATED WAS FROM OVEREATING AT DINNER. ZOFRAN GIVEN ADN N/V RELIEVED. PT HAS PUREWICK IN PLACE DRAINING TO SUCTION. PT EXPECTED TO DISCHARGE HOME WITH TODAY. PT IS CURRENTLY RESTING WITH BED IN LOWEST POSITION, AND CALL LIGHT WITHIN REACH.
--- NOTE | 2022-11-03 03:42 | NUR ---
PT EDUCATED ON [facility] FIRE SAFETY EXPLOSIVE SOURCES/NON SMOKING POLICY AND VERBALIZED UNDERSTANDING.
[2022-11-03 04:45] VITALS: BP 153/79
[2022-11-03 05:17] LABS: BASOPHILS ABSOLUTE AUTO 0.02 K/mm3 (0.00-0.23); BASOPHILS PERCENT AUTO 0 % (0-2); EOSINOPHILS ABSOLUTE AUTO 0.17 K/mm3 (0.00-0.68); EOSINOPHILS PERCENT AUTO 2 % (0-6); Hematocrit 41.6 % (33.0-51.0); Hemoglobin 13.9 g/dL (11.5-16.0); IMMATURE GRAN ABSOLUTE AUTO 0.02 K/mm3 (0.00-0.10); IMMATURE GRAN PERCENT AUTO 0 % (0-1); LYMPHOCYTES ABSOLUTE AUTO 1.28 K/mm3 (0.84-5.20); LYMPHOCYTES PERCENT AUTO 16 % (21-46); MONOCYTES ABSOLUTE AUTO 0.63 K/mm3 (0.16-1.47); MONOCYTES PERCENT AUTO 8 % (4-13); Mean Corpuscular HGB 30.9 pg (26.0-34.0); Mean Corpuscular HGB Conc 33.4 g/dL (31.5-36.5); Mean Corpuscular Volume 92 fL (80-100); Mean Platelet Volume 12.4 fL (9.1-12.4); NEUTROPHILS ABSOLUTE AUTO 6.12 K/mm3 (1.96-9.15); NEUTROPHILS PERCENT AUTO 74 % (41-73); Platelet Count 219 K/mm3 (150-400); RDW Coefficient Variation 12.7 % (11.7-14.2); RDW Standard Deviation 42.6 fL (35.1-46.3); White Blood Cell Count 8.24 K/mm3 (4.00-11.30)
[2022-11-03 05:42] LABS: Bun/Creatinine Ratio 20.9 (12.0-20.0); Calcium, Blood 9.1 mg/dL (8.5-10.1); Creatinine, Blood 0.67 mg/dL (0.40-1.00); Potassium, Blood 3.7 mmol/L (3.5-5.5)
[2022-11-03 07:35] VITALS: BP 154/79
[2022-11-03 15:06] VITALS: BP 110/63
--- NOTE | 2022-11-03 17:02 | NUR ---
SHIFT SUMMARY: PATIENT IS ALERT, AWAKE AND ORIENTED TO SELF AND PLACED. R SIDED DEFICIT. DENIES CP/PRESSURE, SOB, AND GENERALIZED PAIN. RA, LUNGS CLEAR T/O TO AUSCULTATIONS. RECEIVED IV ABX AND PO SCHEDULED MEDS PER EMAR. PATIENT ABLE TO WORK c PT MOBILITY TODAY. PER PT PATIENT STILL WEAK, ABLE TO STAND UP c 1 ASSIST BUT UNABLE TO MAKE A STEPS c SPOUSE FOR SAFE TRANSFER. PER PT PATIENT WOULD BENIFIT FOR ADDITIONAL SESSIONS FROM PT AND RECOMMENDED TO MD HOME c HH SERVICES. INCONTINENCE OF BLADDER, PUREWICK SYSTEM PLACED AND CONNECTED TO SUCTIONS. ORAL CARE DONE AND REPOSITIONED T/O SHIFT. VITAL SIGNS REVIEWED. PIV TO L HAND SALINE LOCKED. BED ALARM ON FOR SAFETY. CALL LIGHT IN REACH.
[2022-11-03 19:18] VITALS: BP 106/54
--- NOTE | 2022-11-04 02:18 | NUR ---
REPORT RECEIVED VERIFIED PT A/O SLOW TO SPEAK OBVIOUS RIGHTSIDE DROOP AND SLURRED SPEECH. NO C/O PAIN CALL LIGHT WITH IN REACH PT WANTING TO SLEEP.
[2022-11-04 04:27] VITALS: BP 149/77
--- NOTE | 2022-11-04 05:58 | NUR ---
SHIFTSUMMARY UNEVENTFUL NIGHT, LAYED QUIETLY IN BE. ENCOURAGE THE PT TO CALL IF NEEDING ASSITENCE, PT REFUSED HELP BUT WAS COOPRATIVE.
[2022-11-04 06:00] LABS: BASOPHILS ABSOLUTE AUTO 0.04 K/mm3 (0.00-0.23); BASOPHILS PERCENT AUTO 1 % (0-2); EOSINOPHILS ABSOLUTE AUTO 0.34 K/mm3 (0.00-0.68); EOSINOPHILS PERCENT AUTO 5 % (0-6); Hemoglobin 13.7 g/dL (11.5-16.0); IMMATURE GRAN ABSOLUTE AUTO 0.03 K/mm3 (0.00-0.10); IMMATURE GRAN PERCENT AUTO 0 % (0-1); LYMPHOCYTES PERCENT AUTO 22 % (21-46); MONOCYTES ABSOLUTE AUTO 0.56 K/mm3 (0.16-1.47); MONOCYTES PERCENT AUTO 7 % (4-13); Mean Corpuscular HGB 30.9 pg (26.0-34.0); Mean Corpuscular HGB Conc 33.4 g/dL (31.5-36.5); Mean Corpuscular Volume 92 fL (80-100); Mean Platelet Volume 12.3 fL (9.1-12.4); NEUTROPHILS ABSOLUTE AUTO 4.93 K/mm3 (1.96-9.15); NEUTROPHILS PERCENT AUTO 65 % (41-73); Platelet Count 221 K/mm3 (150-400); RDW Standard Deviation 43.6 fL (35.1-46.3); Red Blood Cell Count 4.44 M/mm3 (3.80-5.20)
[2022-11-04 06:26] LABS: Creatinine, Blood 0.6 mg/dL (0.40-1.00); Potassium, Blood 4.1 mmol/L (3.5-5.5)
[2022-11-04 07:57] VITALS: BP 129/52
[2022-11-04 15:33] VITALS: BP 120/57
--- NOTE | 2022-11-04 16:31 | NUR ---
SHIFT SUMMARY: PATIENT IS ALERT AND ORIENTED TO SELF. PATIENT APPEARS TO BE MORE TIRED TODAY COMPARED YESTERDAY. PATIENT HAS BEEN SLEEPING ON AND OFF T/O THIS SHIFT. PATIENT WORK c PT MOBILITY THIS AM. PT STILL RECOMMENDED HH SERVICES. Q2 TURN, FEEDER AND ORAL CARE. INCONTINENCE OF URINE, PUREWICK SYSTEM PLACED AND CONNECTED TO SUCTIONS c THE TOTAL URINE OUTPUT OF 300 MLS LATASHA COLOR. RECEIVED IV ABX AND PO MEDS PER EMAR. VITAL SIGNS REVIEWED. BED ALARM ON FOR SAFETY. CALL LIGHT IN REACH.
[2022-11-04 20:12] VITALS: BP 127/50
--- NOTE | 2022-11-05 06:55 | NUR ---
SHIFT SUMMARY PT DID WELL BUT SEEMED UNMOTIVATED WANTS TO SLEEP, IS HAVING OUTPUT WITH PURWIC, SWALLOW INTACT SO MEDS GIVEN FOR RIGHT ARM PAIN. PT WAS TURNED EVERY 2 TO 3 HOURS, C/O MIGRAINE THIS MORNING BUT DOESNT WANT ANYTHING FOR IT NOW. CONT TO MONITOR
[2022-11-05 07:25] LABS: BASOPHILS ABSOLUTE AUTO 0.03 K/mm3 (0.00-0.23); BASOPHILS PERCENT AUTO 0 % (0-2); EOSINOPHILS ABSOLUTE AUTO 0.35 K/mm3 (0.00-0.68); EOSINOPHILS PERCENT AUTO 5 % (0-6); Hematocrit 39.1 % (33.0-51.0); Hemoglobin 12.9 g/dL (11.5-16.0); IMMATURE GRAN ABSOLUTE AUTO 0.02 K/mm3 (0.00-0.10); IMMATURE GRAN PERCENT AUTO 0 % (0-1); LYMPHOCYTES ABSOLUTE AUTO 1.56 K/mm3 (0.84-5.20); LYMPHOCYTES PERCENT AUTO 23 % (21-46); MONOCYTES PERCENT AUTO 7 % (4-13); Mean Corpuscular Volume 94 fL (80-100); Mean Platelet Volume 12.6 fL (9.1-12.4); NEUTROPHILS ABSOLUTE AUTO 4.44 K/mm3 (1.96-9.15); NEUTROPHILS PERCENT AUTO 64 % (41-73); Platelet Count 190 K/mm3 (150-400); RDW Coefficient Variation 13.1 % (11.7-14.2); RDW Standard Deviation 45.1 fL (35.1-46.3); Red Blood Cell Count 4.16 M/mm3 (3.80-5.20)
[2022-11-05 07:38] VITALS: BP 121/61
[2022-11-05 07:46] LABS: Bun/Creatinine Ratio 24.7 (12.0-20.0); Calcium, Blood 8.7 mg/dL (8.5-10.1); Creatinine, Blood 0.65 mg/dL (0.40-1.00)
[2022-11-05] MEDS ORDERED: CEFP200 PO (13:26)
[2022-11-05] MEDS ORDERED: VISBIOME 112.51 EACH PO (13:27)
--- NOTE | 2022-11-05 15:30 | NUR ---
NOTES/DISCHARGE SUMMARY: PATIENT IS ALERT, WIDE AWAKE TODAY AND ORIENTED TO SELF AND PLACED. R SIDED FLACCID. DENIES CP/PRESSURE, SOB, N/V AND GENERALIZED PAIN. RECEIVED IV ABX AND PO SCHEDULED MEDS. INCONTINENCE OF URINE, ATTENDS, PUREWICK SYSTEM PLACED AND CONNECTED TO SUCTION. FEEDER, ORAL CARE, AND Q2 TURN FOR COMFORT. VITAL SIGNS REVIEWED. PIV TO L HAND DC'D. PATIENT DISCHARGE HOME. DISCHARGE INSTRUCTIONS PACKET GIVEN TO PATIENT/SPOUSE (PAOLO). EDUCATE PATIENT AND SPOUSE REGARDING ADMITTING DX OF ENCEPHALOPATHY SECONDARY TO UTI, S/S, TX, SELF CARE, HH SERVICES AND NEW PRESCRIBED MEDICATIONS TO HOME. PATIENT AND PAOLO VERBALIZED UNDERSTANDING AND NO FURTHER QUESTIONS. RX WAS FAXED TO PATIENT PREFERRED PHARMACY ([facility]). ALL PATIENT PERSONAL BELONGINGS WERE SENT HOME c THE PATIENT. PATIENT LEFT THE ROOM AT AROUND 1520, TRANSPORTED VIA WHEELCHAIR BY [employer] TO HOME.
== END 2022-11-05 15:20 | disposition home health service (06) | DRG 689 ==
LOC: ER 10:09 → MEDS 10:10
PROVIDERS: Student in an Organized Health Care Education/Training Program; ADMIT Internal Medicine
DX: N39.0 Urinary tract infection, site not specified (principal); G93.41 Metabolic encephalopathy; I69.351 Hemiplegia and hemiparesis following cerebral infarction affecting right dominant side; E86.0 Dehydration; J44.9 Chronic obstructive pulmonary disease, unspecified; I10 Essential (primary) hypertension; Z66 Do not resuscitate; Z51.5 Encounter for palliative care; G89.29 Other chronic pain; E78.5 Hyperlipidemia, unspecified; E03.9 Hypothyroidism, unspecified; R73.03 Prediabetes; F41.8 Other specified anxiety disorders; N32.89 Other specified disorders of bladder; Z20.822 Contact with and (suspected) exposure to COVID-19; B96.89 Other specified bacterial agents as the cause of diseases classified elsewhere; Z90.710 Acquired absence of both cervix and uterus; Z90.49 Acquired absence of other specified parts of digestive tract; Z98.890 Other specified postprocedural states; Z88.1 Allergy status to other antibiotic agents; Z88.2 Allergy status to sulfonamides; Z79.02 Long term (current) use of antithrombotics/antiplatelets; Z79.890 Hormone replacement therapy; Z79.899 Other long term (current) drug therapy; Z86.19 Personal history of other infectious and parasitic diseases
CPT/HCPCS: 0202U; 36415; 51701; 70450; 71045; 80048; 80053; 81001; 82803; 83735; 84145; 85025; 87086; 87106; 93005; 93010; 94640; 94664; 94760; 96365-59; 97162; 97530; 99285-25; A9270; J0696; J1650; J2405; J7030

== ENCOUNTER → 2022-11-10 | Outpatient (CLI) | payer OTHER ==
[~2022-11-10] MED LIST changes: +ABILIFY MYCITE5 M2 PO; +CEFP200 PO; +FORMOTEROL20 MCG/2 M INH; +Premarin 225 MG/5 ML VAG; +QUETIAPINE FUMA25 MG PO; +VISBIOME 112.51 EACH PO
== END | disposition home or self-care (01) ==
LOC: LAB SHORT 09:00 → LAB 09:00
DX: N39.0 Urinary tract infection, site not specified (principal)
CPT/HCPCS: 87086; 87106

== ENCOUNTER → 2022-11-18 | Outpatient (CLI) | payer OTHER | LOC: LAB SHORT 10:26 → LAB 10:26 | DX: N39.0 Urinary tract infection, site not specified (principal) | CPT/HCPCS: 87086 ==

== ENCOUNTER 2022-12-22 06:51 | Emergency (ER) | payer OTHER ==
[~2022-12-22] VITALS: Ht 165.1 cm; Wt 95.2 kg
[2022-12-22 07:30] LABS: BASOPHILS ABSOLUTE AUTO 0.02 K/mm3 (0.00-0.23); BASOPHILS PERCENT AUTO 0 % (0-2); EOSINOPHILS PERCENT AUTO 2 % (0-6); Hematocrit 38.4 % (33.0-51.0); Hemoglobin 12.6 g/dL (11.5-16.0); IMMATURE GRAN ABSOLUTE AUTO 0.01 K/mm3 (0.00-0.10); IMMATURE GRAN PERCENT AUTO 0 % (0-1); LYMPHOCYTES ABSOLUTE AUTO 1.22 K/mm3 (0.84-5.20); LYMPHOCYTES PERCENT AUTO 14 % (21-46); MONOCYTES PERCENT AUTO 7 % (4-13); Mean Corpuscular HGB 31.3 pg (26.0-34.0); Mean Corpuscular HGB Conc 32.8 g/dL (31.5-36.5); Mean Corpuscular Volume 95 fL (80-100); Mean Platelet Volume 12.5 fL (9.1-12.4); NEUTROPHILS ABSOLUTE AUTO 7.02 K/mm3 (1.96-9.15); NEUTROPHILS PERCENT AUTO 77 % (41-73); Platelet Count 159 K/mm3 (150-400); RDW Coefficient Variation 12.9 % (11.7-14.2); RDW Standard Deviation 45.3 fL (35.1-46.3); Red Blood Cell Count 4.03 M/mm3 (3.80-5.20); White Blood Cell Count 9.07 K/mm3 (4.00-11.30)
[2022-12-22 07:46] LABS: Source, Urine Straight Cath
[2022-12-22 07:51] LABS: Appearance, Urine Clear (Clear); Blood, Urine 1+ (Neg); Color, Urine Yellow (P-Yellow); Glucose Qualitative, Urine Neg (Neg); Ketones, Urine 1+ (Neg); Leukocyte Esterase, Urine 2+ (Neg); Nitrite, Urine Neg (Neg); Protein, Urine 2+ (Neg); Specific Gravity, Urine 1.025 (1.003-1.022); Urobilinogen, Urine 1+ (Normal)
[2022-12-22 07:56] LABS: Albumin/Globulin Ratio 0.8 (0.8-1.8); Bilirubin, Total 0.7 mg/dL (0.1-1.0); Calcium, Blood 8.6 mg/dL (8.5-10.1); Creatinine, Blood 0.8 mg/dL (0.40-1.00); Potassium, Blood 3.6 mmol/L (3.5-5.5)
[2022-12-22 07:57] LABS: Bilirubin, Urine 1+ (Neg)
[2022-12-22 07:58] LABS: Bacteria Few /hpf; Squamous Epithelial Cells Few /hpf (Few); Yeast/Fungi Urine Rare /hpf
[2022-12-22] MEDS ORDERED: CEFP200 PO (09:33)
[2022-12-22 10:00] VITALS: BP 122/58
== END 2022-12-22 10:23 | disposition home or self-care (01) ==
LOC: ER 06:51
PROVIDERS: Student in an Organized Health Care Education/Training Program
DX: N39.0 Urinary tract infection, site not specified (principal); R44.1 Visual hallucinations; I10 Essential (primary) hypertension; E03.9 Hypothyroidism, unspecified; E78.5 Hyperlipidemia, unspecified; I69.951 Hemiplegia and hemiparesis following unspecified cerebrovascular disease affecting right dominant side; Z88.2 Allergy status to sulfonamides; Z88.1 Allergy status to other antibiotic agents; Z79.899 Other long term (current) drug therapy; Z79.890 Hormone replacement therapy
CPT/HCPCS: 71045; 80053; 81001; 85025; 87086; 87106; 96360; 99284-25; A9270; J7030; P9612

== ENCOUNTER → 2023-03-12 | Outpatient (CLI) | payer OTHER | LOC: LAB 11:15 → LAB SHORT 11:15 | DX: N39.0 Urinary tract infection, site not specified (principal) | CPT/HCPCS: 87086 ==

== ENCOUNTER → 2023-03-30 | Outpatient (CLI) | payer OTHER ==
[2023-03-30 12:12] LABS: Creatinine, Urine Random 68.9 mg/dL (27.00-270.00); Microalb/Creat Ratio UR, Rand 8.331 mg/g (0.000-30.000); Microalbumin, Random Urine 5.74 mg/L (0.000-20.000)
== END | disposition home or self-care (01) ==
LOC: LAB 08:20 → LAB SHORT 08:20
PROVIDERS: Family Medicine
DX: R73.03 Prediabetes (principal)
CPT/HCPCS: 82043; 82570

== ENCOUNTER → 2023-07-06 | Outpatient (CLI) | payer OTHER | END | disposition home or self-care (01) | LOC: LAB 11:21 → LAB SHORT 11:21 | DX: R82.998 Other abnormal findings in urine (principal) | CPT/HCPCS: 87077; 87086; 87186 ==

== ENCOUNTER → 2023-08-24 | Outpatient (CLI) | payer OTHER ==
[2023-08-24 11:15] LABS: Source, Urine Clean Catch
[2023-08-24 12:07] LABS: Appearance, Urine Hazy (Clear); Bilirubin, Urine Neg (Neg); Blood, Urine Neg (Neg); Color, Urine Yellow (P-Yellow); Glucose Qualitative, Urine Neg (Normal); Ketones, Urine Neg (Neg); Leukocyte Esterase, Urine Trace (Neg); Nitrite, Urine Neg (Neg); Protein, Urine Neg (Neg); Red Blood Cells, Urine 0-2 /hpf (0-2); Squamous Epithelial Cells Mod /hpf (Few); Urobilinogen, Urine NORM (Normal)
[2023-08-24 12:08] LABS: Bacteria Few /hpf
== END | disposition home or self-care (01) ==
LOC: LAB 10:46 → LAB SHORT 10:46
PROVIDERS: Nurse Practitioner Acute Care
DX: N39.0 Urinary tract infection, site not specified (principal)
CPT/HCPCS: 81001; 87086

== ENCOUNTER → 2023-09-07 | Outpatient (CLI) | payer OTHER ==
[2023-09-07 14:13] LABS: Microalb/Creat Ratio UR, Rand Unable to Calculate mg/g (0.000-30.000); Microalbumin, Random Urine <5.000 mg/L (0.000-20.000)
[2023-09-07 14:27] LABS: Bacteria Mod /hpf; Red Blood Cells, Urine 0-2 /hpf (0-2); Squamous Epithelial Cells Few /hpf (Few)
== END ==
LOC: LAB 08:00 → LAB SHORT 08:00
PROVIDERS: Family Medicine
DX: R35.0 Frequency of micturition (principal); R73.03 Prediabetes
CPT/HCPCS: 81015; 82043; 82570; 87086

== ENCOUNTER 2023-09-17 19:14 | Emergency (ER) | payer OTHER ==
[~2023-09-17] VITALS: Ht 165.1 cm; Wt 86.2 kg
[2023-09-17 19:58] LABS: BASOPHILS ABSOLUTE AUTO 0.03 K/mm3 (0.00-0.23); BASOPHILS PERCENT AUTO 0 % (0-2); EOSINOPHILS ABSOLUTE AUTO 0.22 K/mm3 (0.00-0.68); EOSINOPHILS PERCENT AUTO 3 % (0-6); Hematocrit 37.6 % (33.0-51.0); IMMATURE GRAN ABSOLUTE AUTO 0.01 K/mm3 (0.00-0.10); IMMATURE GRAN PERCENT AUTO 0 % (0-1); LYMPHOCYTES ABSOLUTE AUTO 2.45 K/mm3 (0.84-5.20); LYMPHOCYTES PERCENT AUTO 35 % (21-46); MONOCYTES ABSOLUTE AUTO 0.39 K/mm3 (0.16-1.47); MONOCYTES PERCENT AUTO 6 % (4-13); Mean Corpuscular HGB 31.9 pg (26.0-34.0); Mean Corpuscular HGB Conc 34.6 g/dL (31.5-36.5); Mean Corpuscular Volume 92 fL (80-100); Mean Platelet Volume 12.3 fL (9.1-12.4); NEUTROPHILS ABSOLUTE AUTO 3.97 K/mm3 (1.96-9.15); NEUTROPHILS PERCENT AUTO 56 % (41-73); Platelet Count 181 K/mm3 (150-400); RDW Coefficient Variation 12.4 % (11.7-14.2); RDW Standard Deviation 41.9 fL (35.1-46.3); Red Blood Cell Count 4.08 M/mm3 (3.80-5.20); White Blood Cell Count 7.07 K/mm3 (4.00-11.30)
[2023-09-17 20:19] LABS: Albumin, Blood 2.9 g/dL (3.4-5.0); Albumin/Globulin Ratio 0.8 (0.8-1.8); Bilirubin, Total 0.6 mg/dL (0.1-1.0); Bun/Creatinine Ratio 32.4 (12.0-20.0); Calcium, Blood 8.2 mg/dL (8.5-10.1); Creatinine, Blood 0.71 mg/dL (0.40-1.00); Globulin, Blood 3.7 g/dL (2.2-4.0); Potassium, Blood 3.7 mmol/L (3.5-5.5); Total Protein, Blood 6.6 g/dL (6.4-8.2)
[2023-09-17 22:30] VITALS: BP 137/80
== END 2023-09-17 22:48 | disposition home or self-care (01) ==
LOC: ER 19:14
PROVIDERS: Emergency Medicine
DX: G62.9 Polyneuropathy, unspecified (principal); R73.9 Hyperglycemia, unspecified; I69.951 Hemiplegia and hemiparesis following unspecified cerebrovascular disease affecting right dominant side; I10 Essential (primary) hypertension; E03.9 Hypothyroidism, unspecified; E78.5 Hyperlipidemia, unspecified; K21.9 Gastro-esophageal reflux disease without esophagitis; Z88.2 Allergy status to sulfonamides; Z88.1 Allergy status to other antibiotic agents; Z79.890 Hormone replacement therapy; Z79.899 Other long term (current) drug therapy
CPT/HCPCS: 70450; 80053; 85025; 93971; 99284-25

== ENCOUNTER 2024-05-18 01:10 | Emergency (ER) | payer OTHER ==
[~2024-05-18] VITALS: Ht 167.6 cm; Wt 90.7 kg
[~2024-05-18 01:10] MED LIST changes: +CEPH500 PO; +FAMO20
[2024-05-18 01:35] LABS: BASOPHILS ABSOLUTE AUTO 0.02 K/mm3 (0.00-0.23); BASOPHILS PERCENT AUTO 0 % (0-2); EOSINOPHILS PERCENT AUTO 3 % (0-6); Hematocrit 41.5 % (33.0-51.0); IMMATURE GRAN ABSOLUTE AUTO 0.01 K/mm3 (0.00-0.10); IMMATURE GRAN PERCENT AUTO 0 % (0-1); LYMPHOCYTES ABSOLUTE AUTO 2.48 K/mm3 (0.84-5.20); LYMPHOCYTES PERCENT AUTO 37 % (21-46); MONOCYTES ABSOLUTE AUTO 0.38 K/mm3 (0.16-1.47); MONOCYTES PERCENT AUTO 6 % (4-13); Mean Corpuscular HGB 30.8 pg (26.0-34.0); Mean Corpuscular HGB Conc 33.7 g/dL (31.5-36.5); Mean Corpuscular Volume 91 fL (80-100); Mean Platelet Volume 11.9 fL (9.1-12.4); NEUTROPHILS PERCENT AUTO 54 % (41-73); Platelet Count 189 K/mm3 (150-400); RDW Coefficient Variation 12.5 % (11.7-14.2); RDW Standard Deviation 41.8 fL (35.1-46.3); Red Blood Cell Count 4.54 M/mm3 (3.80-5.20); White Blood Cell Count 6.69 K/mm3 (4.00-11.30)
[2024-05-18 01:53] LABS: Albumin, Blood 3.5 g/dL (3.4-5.0); Albumin/Globulin Ratio 0.9 (0.8-1.8); Bilirubin, Total 0.9 mg/dL (0.1-1.0); Bun/Creatinine Ratio 33.5 (12.0-20.0); Calcium, Blood 9.3 mg/dL (8.5-10.1); Creatinine, Blood 0.69 mg/dL (0.40-1.00); Globulin, Blood 3.7 g/dL (2.2-4.0); Potassium, Blood 3.5 mmol/L (3.5-5.5); Total Protein, Blood 7.2 g/dL (6.4-8.2)
[2024-05-18 01:55] LABS: Source, Urine Straight Cath
[2024-05-18 01:57] LABS: Appearance, Urine Clear (Clear); Bilirubin, Urine Neg (Neg); Blood, Urine Neg (Neg); Color, Urine Yellow (P-Yellow); Glucose Qualitative, Urine Neg (Neg); Ketones, Urine Neg (Neg); Leukocyte Esterase, Urine Neg (Neg); Nitrite, Urine Neg (Neg); Protein, Urine 1+ (Neg); Urobilinogen, Urine NORM (Normal)
[2024-05-18] MEDS ORDERED: Melatonin 3 MG Tab PO ONE (03:15)
[2024-05-18 03:25] VITALS: BP 132/61
== END 2024-05-18 03:40 | disposition other institution (70) ==
LOC: ER 01:10
PROVIDERS: Emergency Medicine
DX: R41.0 Disorientation, unspecified (principal); I10 Essential (primary) hypertension; E78.5 Hyperlipidemia, unspecified; K21.9 Gastro-esophageal reflux disease without esophagitis; Z86.73 Personal history of transient ischemic attack (TIA), and cerebral infarction without residual deficits
CPT/HCPCS: 70450; 80053; 85025; 99285-25; A9270

== ENCOUNTER 2024-07-12 18:24 | Emergency (ER) | payer OTHER ==
[~2024-07-12] VITALS: Ht 165.1 cm; Wt 92.1 kg
[2024-07-12 18:59] LABS: BASOPHILS ABSOLUTE AUTO 0.02 K/mm3 (0.00-0.23); BASOPHILS PERCENT AUTO 0 % (0-2); EOSINOPHILS ABSOLUTE AUTO 0.15 K/mm3 (0.00-0.68); EOSINOPHILS PERCENT AUTO 2 % (0-6); Hematocrit 41.2 % (33.0-51.0); Hemoglobin 13.8 g/dL (11.5-16.0); IMMATURE GRAN ABSOLUTE AUTO 0.01 K/mm3 (0.00-0.10); IMMATURE GRAN PERCENT AUTO 0 % (0-1); LYMPHOCYTES ABSOLUTE AUTO 2.23 K/mm3 (0.84-5.20); LYMPHOCYTES PERCENT AUTO 30 % (21-46); MONOCYTES ABSOLUTE AUTO 0.45 K/mm3 (0.16-1.47); MONOCYTES PERCENT AUTO 6 % (4-13); Mean Corpuscular HGB 30.9 pg (26.0-34.0); Mean Corpuscular HGB Conc 33.5 g/dL (31.5-36.5); Mean Corpuscular Volume 92 fL (80-100); Mean Platelet Volume 11.9 fL (9.1-12.4); NEUTROPHILS ABSOLUTE AUTO 4.51 K/mm3 (1.96-9.15); NEUTROPHILS PERCENT AUTO 61 % (41-73); Platelet Count 184 K/mm3 (150-400); RDW Coefficient Variation 12.1 % (11.7-14.2); RDW Standard Deviation 40.8 fL (35.1-46.3); Red Blood Cell Count 4.46 M/mm3 (3.80-5.20); White Blood Cell Count 7.37 K/mm3 (4.00-11.30)
[2024-07-12 19:12] LABS: Albumin, Blood 3.4 g/dL (3.4-5.0); Bilirubin, Total 0.9 mg/dL (0.1-1.0); Bun/Creatinine Ratio 38.9 (12.0-20.0); Calcium, Blood 9.3 mg/dL (8.5-10.1); Creatinine, Blood 0.67 mg/dL (0.40-1.00); Globulin, Blood 3.4 g/dL (2.2-4.0); Potassium, Blood 3.7 mmol/L (3.5-5.5); Total Protein, Blood 6.8 g/dL (6.4-8.2)
[2024-07-12 19:14] LABS: U Amphetamine Screen Not Detected; U Barbituate Screen Not Detected; U Benzodiazapine Screen Not Detected; U Buprenorphine Screen Not Detected; U Cannabinoids Screen Not Detected; U Cocaine Screen Not Detected; U Methadone Screen Not Detected; U Methamphetamine Screen Not Detected; U Opiates Screen Not Detected; U Oxycodone Screen Not Detected; U Phencyclidine Screen Not Detected
[2024-07-12 19:46] LABS: Source, Urine Clean Catch
[2024-07-12 19:50] LABS: Appearance, Urine Clear (Clear); Bilirubin, Urine Neg (Neg); Blood, Urine 2+ (Neg); Color, Urine Yellow (P-Yellow); Glucose Qualitative, Urine Neg (Neg); Ketones, Urine 1+ (Neg); Leukocyte Esterase, Urine Neg (Neg); Nitrite, Urine Neg (Neg); Protein, Urine 2+ (Neg); Specific Gravity, Urine 1.015 (1.003-1.022); Urobilinogen, Urine NORM (Normal); pH, Urine 6.5 (5.0-8.0)
[2024-07-12 19:57] LABS: Bacteria Few /hpf; Squamous Epithelial Cells Few /hpf (Few)
[2024-07-12 19:58] LABS: Yeast/Fungi Urine Few /hpf
[2024-07-12 21:33] VITALS: BP 146/64
== END 2024-07-12 22:52 | disposition home or self-care (01) ==
LOC: ER 18:24
PROVIDERS: Student in an Organized Health Care Education/Training Program
DX: R44.3 Hallucinations, unspecified (principal); Z88.2 Allergy status to sulfonamides; Z88.1 Allergy status to other antibiotic agents; Z79.899 Other long term (current) drug therapy; Z79.890 Hormone replacement therapy; Z79.2 Long term (current) use of antibiotics; I10 Essential (primary) hypertension; E78.5 Hyperlipidemia, unspecified; K21.9 Gastro-esophageal reflux disease without esophagitis
CPT/HCPCS: 70450; 80053; 80320; 81001; 85025; 93005; 93010; 99285-25

== ENCOUNTER 2024-11-20 10:57 | Day surgery (SDC) | payer OTHER ==
[2024-11-20] VITALS (7 sets, daily range): BP systolic 120–184; BP diastolic 73–158
[~2024-11-20] VITALS: Ht 167.6 cm; Wt 90.9 kg
[2024-11-20] MEDS ORDERED: Midazolam HCl 1MG / ML 2ML Vial ONE (13:47)
[2024-11-20] MEDS ORDERED: FentaNYL Citrate 50 MCG/ML 2 ML Injection ONE (13:48)
[2024-11-20] MEDS ORDERED: NS 1,000 ML IV ONE (13:56)
--- NOTE | 2024-11-20 14:38 | NUR ---
PT RETURNED TO RECOVERY ROOM IN BED. SUPRAPUBIC SITE SOFT NON-TENDER WITH NO HEMATOMA, NO BLEEDING AND INTACT DRESSING. DRAIN BAG TO GRAVITY WITH RED-TINGED URINE NOTED. PT'S IN TOON WITH PATIENT.
--- NOTE | 2024-11-20 15:54 | NUR ---
DISCHARGE INSTRUCTIONS REVIEWED WITH PATIENTS SPOUSE. ALL QUESTIONS WERE ANSWERED. SUPRAPUBIC CATHETER DRAINING APPROPRIATELY. VSS ON RA. PIV REMOVED WITHOUT DIFFICULY, CATHETER INTACT. PATIENT WHEELED TO HOSPITAL ENTRANCE AND [facility] TRANSPORTATION ABLE TO TRANSPORT PATIENT HOME.
== END 2024-11-20 16:26 | disposition home or self-care (01) ==
LOC: MHTC 10:57
DX: N39.41 Urge incontinence (principal); N39.0 Urinary tract infection, site not specified; R33.9 Retention of urine, unspecified; I69.351 Hemiplegia and hemiparesis following cerebral infarction affecting right dominant side; F03.90 Unspecified dementia, unspecified severity, without behavioral disturbance, psychotic disturbance, mood disturbance, and anxiety; Z79.02 Long term (current) use of antithrombotics/antiplatelets; Z79.890 Hormone replacement therapy; Z79.899 Other long term (current) drug therapy; Z88.1 Allergy status to other antibiotic agents; Z99.3 Dependence on wheelchair
CPT/HCPCS: 76937; 99152; C1729; C1769; J2250; J3010; J7030; Q9967

== ENCOUNTER 2024-12-11 10:18 | Day surgery (SDC) | payer OTHER ==
[~2024-12-11] VITALS: Ht 167.6 cm; Wt 91.0 kg
[~2024-12-11 10:18] MED LIST changes: +METHENAMINE HIPPURAT PO; +Seroquel Xr50 MG PO
[2024-12-11 10:49] VITALS: BP 156/72
[2024-12-11 11:02] VITALS: BP 156/72
[2024-12-11] MEDS ORDERED: NS 500 ML IV ONE (12:34)
[2024-12-11 13:26] VITALS: BP 122/106
--- NOTE | 2024-12-11 13:29 | NUR ---
PT RETURNED TO RECOVERY ROOM IN BED. SUPRAPUBIC SITE SOFT NON-TENDER WITH NO HEMATOMA, NO BLEEDING WITH INTACT DRESSING AND GRAVITY BAG WITH PINK-TINGED URINE NOTED. PT'S IN ROOM.
== END 2024-12-11 13:49 | disposition home or self-care (01) ==
LOC: MHTC 10:18
DX: N39.41 Urge incontinence (principal); R33.9 Retention of urine, unspecified; N39.0 Urinary tract infection, site not specified; I69.351 Hemiplegia and hemiparesis following cerebral infarction affecting right dominant side; Z88.1 Allergy status to other antibiotic agents; Z88.2 Allergy status to sulfonamides; Z93.59 Other cystostomy status; Z79.899 Other long term (current) drug therapy
CPT/HCPCS: 51102; 77002; C1729; C1769; J7040; Q9967

== ENCOUNTER 2024-12-25 12:29 | Emergency (ER) | payer OTHER ==
[~2024-12-25] VITALS: Ht 165.1 cm; Wt 77.1 kg
[2024-12-25 13:32] LABS: BASOPHILS ABSOLUTE AUTO 0.04 K/mm3 (0.00-0.23); BASOPHILS PERCENT AUTO 1 % (0-2); EOSINOPHILS ABSOLUTE AUTO 0.32 K/mm3 (0.00-0.68); EOSINOPHILS PERCENT AUTO 4 % (0-6); Hematocrit 41.9 % (33.0-51.0); Hemoglobin 14.2 g/dL (11.5-16.0); IMMATURE GRAN ABSOLUTE AUTO 0.03 K/mm3 (0.00-0.10); IMMATURE GRAN PERCENT AUTO 0 % (0-1); LYMPHOCYTES ABSOLUTE AUTO 1.49 K/mm3 (0.84-5.20); LYMPHOCYTES PERCENT AUTO 18 % (21-46); MONOCYTES ABSOLUTE AUTO 0.48 K/mm3 (0.16-1.47); MONOCYTES PERCENT AUTO 6 % (4-13); Mean Corpuscular HGB Conc 33.9 g/dL (31.5-36.5); Mean Corpuscular Volume 93 fL (80-100); NEUTROPHILS ABSOLUTE AUTO 5.85 K/mm3 (1.96-9.15); NEUTROPHILS PERCENT AUTO 71 % (41-73); NRBC ABSOLUTE 0.00 K/mm3 (0.00-0.02); NRBC Auto 0.0 /100 WBC (0.0-0.2); Platelet Count 194 K/mm3 (150-400); RDW Coefficient Variation 12.1 % (11.7-14.2); RDW Standard Deviation 41.8 fL (35.1-46.3)
[2024-12-25 14:12] LABS: Alanine Aminotransfer (ALT/SGP 33.0 U/L (12-78); Albumin, Blood 3.4 g/dL (3.4-5.0); Albumin/Globulin Ratio 0.8 (0.8-1.8); Anion Gap 5.0 mmol/L (3-11); Aspartate Aminotrans (AST/SGOT 26.0 U/L (12-37); Bilirubin, Total 0.7 mg/dL (0.1-1.0); Blood Urea Nitrogen 19.0 mg/dL (8-24); CO2, Blood 31.0 mmol/L (21-32); Calcium, Blood 9.1 mg/dL (8.5-10.1); Chloride, Blood 106.0 mmol/L (98-108); Creatinine, Blood 0.66 mg/dL (0.40-1.00); Globulin, Blood 4.0 g/dL (2.2-4.0); Glucose, Blood 137.0 mg/dL (70-99); Potassium, Blood 3.8 mmol/L (3.5-5.5); Sodium, Blood 138.0 mmol/L (136-145); Total Protein, Blood 7.4 g/dL (6.4-8.2)
[2024-12-25] MEDS ORDERED: Lidocaine 2% Viscous Soln 15 ML UDC PO ONE (16:00)
[2024-12-25 17:00] VITALS: BP 147/65
== END 2024-12-25 17:13 | disposition home or self-care (01) ==
LOC: ER 12:29
PROVIDERS: Physician Assistant
DX: S27.818A Other injury of esophagus (thoracic part), initial encounter (principal); I10 Essential (primary) hypertension; X58.XXXA Exposure to other specified factors, initial encounter
CPT/HCPCS: 70360; 71046; 80053; 85025; 99284-25; A9270